=== PATIENT | male | born 1955 | race Caucasian/White ===

== ENCOUNTER → 2019-11-29 | Outpatient (CLI) | payer OTHER, MEDICARE | LOC: LABNPT 16:01 | PROVIDERS: ATTEND Nurse Practitioner Family | DX: Z20.828 Contact with and (suspected) exposure to other viral communicable diseases (principal) | CPT/HCPCS: 87635 ==

== ENCOUNTER 2020-05-05 12:22 | Inpatient (IN) | payer MEDICARE, MEDICAID ==
[~2020-05-05] VITALS: Ht 177 cm; Wt 72.5 kg
--- NOTE | 2020-05-05 12:48 | ED General ---
General Chief Complaint: Fever-Adult/Adol Stated Complaint: FEVER, Source of Information: Prison Records Exam Limitations: No Limitations History of Present Illness Date Seen by Provider: May 05, 2020 Time Seen by Provider: 12:46 Initial Comments To ER from [facility] with reports of a fever intermittently up to 103. They had laboratory studies done today which showed leukocytosis and allegedly a 23,000 white count. They were unable to obtain a urine catheterization. He had Covid in January and was tested yesterday again and was negative. He is demented and unable to contribute to HPI. Timing/Duration: 1-2 Days Severity: Moderate Associated Systoms: Fever/Chills Allergies and Home Medications Allergies Coded Allergies: No Known Drug Allergies (Unverified , 05/05/20) Patient Home Medication List Home Medication List Reviewed: Yes Review of Systems Review of Systems Constitutional: see HPI, fever, other (Unable to obtain due to dementia) Physical Exam Vital Signs Vital Signs - First Documented 05/05/20 12:25 Pulse 93 Resp 20 B/P (MAP) 130/74 (92) Pulse Ox 95 Capillary Refill : Height, Weight, BMI Height: '" Weight: lbs. oz. kg; BMI Method: General Appearance: No Apparent Distress, WD/WN, Thin, Other (Very demented. Afebrile.) HEENT: Other (nasal secretions dried around nose) Neck: Full Range of Motion Respiratory: No Accessory Muscle Use, No Respiratory Distress, Rales Cardiovascular: Regular Rate, Rhythm, Normal Peripheral Pulses Gastrointestinal: Normal Bowel Sounds, Non Tender, Soft Extremity: Normal Capillary Refill, Normal Inspection Neurologic/Psychiatric: Alert, Oriented x3 Skin: Normal Color, Warm/Dry Focused Exam Lactate Level 05/05/20 12:34: Lactic Acid Level 3.12*H Lactic Acid Level Laboratory Tests Test 05/05/20 12:34 Lactic Acid Level 3.12 MMOL/L (0.50-2.00) *H Progress/Results/Core Measures Suspected Sepsis SIRS Temperature: Pulse: Respiratory Rate: Laboratory Tests 05/05/20 12:34: White Blood Count 27.8H Blood Pressure / Mean: 05/05/20 12:34: Lactic Acid Level 3.12*H Laboratory Tests 05/05/20 12:34: Creatinine 1.09, Platelet Count 260, Total Bilirubin 1.6H Results/Orders Lab Results Laboratory Tests Test 05/05/20 12:34 05/05/20 12:42 Range/Units White Blood Count 27.8 H 4.3-11.0 10^3/uL Red Blood Count 4.51 4.30-5.52 10^6/uL Hemoglobin 13.4 13.3-17.7 g/dL Hematocrit 42 40-54 % Mean Corpuscular Volume 93 80-99 fL Mean Corpuscular Hemoglobin 30 25-34 pg Mean Corpuscular Hemoglobin Concent 32 32-36 g/dL Red Cell Distribution Width 13.0 10.0-14.5 % Platelet Count 260 130-400 10^3/uL Mean Platelet Volume 10.7 9.0-12.2 fL Immature Granulocyte % (Auto) 1 % Neutrophils (%) (Auto) 77 H 42-75 % Lymphocytes (%) (Auto) 8 L 12-44 % Monocytes (%) (Auto) 14 H 0-12 % Eosinophils (%) (Auto) 0 0-10 % Basophils (%) (Auto) 0 0-10 % Neutrophils # (Auto) 21.5 H 1.8-7.8 10^3/uL Lymphocytes # (Auto) 2.2 1.0-4.0 10^3/uL Monocytes # (Auto) 3.8 H 0.0-1.0 10^3/uL Eosinophils # (Auto) 0.1 0.0-0.3 10^3/uL Basophils # (Auto) 0.1 0.0-0.1 10^3/uL Immature Granulocyte # (Auto) 0.3 H 0.0-0.1 10^3/uL Sodium Level 138 135-145 MMOL/L Potassium Level 4.1 3.6-5.0 MMOL/L Chloride Level 103 98-107 MMOL/L Carbon Dioxide Level 24 21-32 MMOL/L Anion Gap 11 5-14 MMOL/L Blood Urea Nitrogen 19 H 7-18 MG/DL Creatinine 1.09 0.60-1.30 MG/DL Estimat Glomerular Filtration Rate > 60 BUN/Creatinine Ratio 17 Glucose Level 105 70-105 MG/DL Lactic Acid Level 3.12 *H 0.50-2.00 MMOL/L Calcium Level 9.3 8.5-10.1 MG/DL Corrected Calcium 9.4 8.5-10.1 MG/DL Total Bilirubin 1.6 H 0.1-1.0 MG/DL Aspartate Amino Transf (AST/SGOT) 35 H 5-34 U/L Alanine Aminotransferase (ALT/SGPT) 20 0-55 U/L Alkaline Phosphatase 65 40-136 U/L Total Protein 7.3 6.4-8.2 GM/DL Albumin 3.9 3.2-4.5 GM/DL Urine Color YELLOW Urine Clarity CLEAR Urine pH 6.0 5-9 Urine Specific [place] 1.015 L 1.016-1.022 Urine Protein NEGATIVE NEGATIVE Urine Glucose (UA) NEGATIVE NEGATIVE Urine Ketones NEGATIVE NEGATIVE Urine Nitrite NEGATIVE NEGATIVE Urine Bilirubin NEGATIVE NEGATIVE Urine Urobilinogen 0.2 < = 1.0 MG/DL Urine Leukocyte Esterase NEGATIVE NEGATIVE Urine RBC (Auto) NEGATIVE NEGATIVE Urine RBC NONE /HPF Urine WBC NONE /HPF Urine Crystals PRESENT H /LPF Urine Amorphous Sediment RARE JOHN URATES H /LPF Urine Bacteria NEGATIVE /HPF Urine Casts NONE /LPF Urine Mucus NEGATIVE /LPF Urine Culture Indicated CULTURE PENDING Micro Results Microbiology 05/05/20 Influenza Types A,B Antigen (DOMENICO) - Final, Complete My Orders Orders - CHARITY CARRERA APRN Cbc With Automated Diff (05/05/20 12:26) Comprehensive Metabolic Panel (05/05/20 12:26) Blood Culture (05/05/20 12:26) Sputum Culture (05/05/20 12:26) Urinalysis (05/05/20 12:26) Urine Culture (05/05/20 12:26) Protime With Inr (05/05/20 12:26) Partial Thromboplastin Time (05/05/20 12:26) Chest 1 View, Ap/Pa Only (05/05/20 12:26) Ed Iv/Invasive Line Start (05/05/20 12:26) Vital Signs Adult Sepsis Patie Q15M (05/05/20 12:26) O2 (05/05/20 12:26) Remove Rings In Anticipation O (05/05/20 12:26) Lactic Acid Analyzer (05/05/20 12:26) Manual Differential (05/05/20 12:34) Influenza A And B Antigens (05/05/20 13:04) Piperacillin Sodium/Tazobactam (Zosyn Vi (05/05/20 13:15) Ns Iv 1000 Ml (Sodium Chloride 0.9%) (05/05/20 13:45) Vital Signs/I&O 05/05/20 12:25 Pulse 93 Resp 20 B/P (MAP) 130/74 (92) Pulse Ox 95 Capillary Refill : Departure Communication (Admissions) Family Conversation NAME: ABBY ANTONIO [facility] REC#: [id number] PT STATUS: REG ER : 1955 PHYSICIAN: CHARITY CARRERA APRN ADMIT DATE: 05/05/20/ER Draft Date of Exam:05/05/20 CHEST 1 VIEW, AP/PA ONLY INDICATION: Fever and cough and elevated white blood cell count. TIME OF EXAM: 01:22 p.m. COMPARISON: Correlation is made with prior chest from 04/11/2018. FINDINGS: There appears to be an area of consolidation in the left base, suggestive of pneumonia. Remaining lung nash are clear. There is no effusion or pneumothorax. IMPRESSION: Left basilar pneumonia. Dictated on workstation # [id number] Dict: 05/05/20 1334 Trans: 05/05/20 1337 [id number] [id number] Interpreted by: MORGAN MORAN MD Electronically signed by: Patient is full CODE STATUS per halfway documentation. Despite this, given his frail status prognosis is very guarded Impression Primary Impression: Pneumonia Additional Impression: Sepsis Disposition: 09 ADMITTED INPATIENT Condition: Stable Admissions Decision to Admit Reason: Admit from ER (General) Decision to Admit/Date: May 05, 2020 Time/Decision to Admit Time: 13:40 Departure-Patient Inst. Referrals: DYLAN HAJI DO (PCP/Family) Primary Care Physician CHARITY CARRERA APRN May 05, 2020 12:48
[2020-05-05 12:50] LABS: BASOPHILS # (AUTO) 0.1 10^3/uL (0.0-0.1); BASOPHILS % (AUTO) 0 % (0-10); EOSINOPHILS # (AUTO) 0.1 10^3/uL (0.0-0.3); EOSINOPHILS % (AUTO) 0 % (0-10); HEMATOCRIT 42 % (40-54); HEMOGLOBIN 13.4 g/dL (13.3-17.7); LYMPHOCYTES # (AUTO) 2.2 10^3/uL (1.0-4.0); LYMPHOCYTES % (AUTO) 8 % (12-44); MEAN CORPUSCULAR HEMOGLOBIN 30 pg (25-34); MEAN CORPUSCULAR HGB CONC 32 g/dL (32-36); MEAN CORPUSCULAR VOLUME 93 fL (80-99); MEAN PLATELET VOLUME 10.7 fL (9.0-12.2); MONOCYTES # (AUTO) 3.8 10^3/uL (0.0-1.0); MONOCYTES % (AUTO) 14 % (0-12); NEUTROPHILS # (AUTO) 21.5 10^3/uL (1.8-7.8); NEUTROPHILS % (AUTO) 77 % (42-75); PLATELET COUNT 260 10^3/uL (130-400); WHITE BLOOD COUNT 27.8 10^3/uL (4.3-11.0)
[2020-05-05 12:52] LABS: BILIRUBIN,URINE NEGATIVE (NEGATIVE); CLARITY,URINE CLEAR; COLOR,URINE YELLOW; GLUCOSE, URINE (UA) NEGATIVE (NEGATIVE); KETONES,URINE NEGATIVE (NEGATIVE); LEUKOCYTE ESTERASE ,URINE NEGATIVE (NEGATIVE); NITRITE,URINE NEGATIVE (NEGATIVE); PROTEIN,URINE NEGATIVE (NEGATIVE)
[2020-05-05 13:09] LABS: ALANINE AMINOTRANSFERASE 20 U/L (0-55); ALBUMIN 3.9 GM/DL (3.2-4.5); ALKALINE PHOSPHATASE 65 U/L (40-136); BILIRUBIN,TOTAL 1.6 MG/DL (0.1-1.0); BUN/CREATININE RATIO 17; CALCIUM 9.3 MG/DL (8.5-10.1); CARBON DIOXIDE 24 MMOL/L (21-32); CHLORIDE 103 MMOL/L (98-107); CREATININE SERUM 1.09 MG/DL (0.60-1.30); GFR ESTIMATED > 60; GLUCOSE 105 MG/DL (70-105); POTASSIUM 4.1 MMOL/L (3.6-5.0); SODIUM 138 MMOL/L (135-145); TOTAL PROTEIN 7.3 GM/DL (6.4-8.2)
[2020-05-05] MEDS ORDERED: PIPERACILLIN SODIUM/TAZOBACTAM 4.5 GM in NS (IVPB) 100 ML IV ONE (13:15)
[2020-05-05 13:23] LABS: AMORPHOUS SEDIMENT,UR RARE AMOR URATES /LPF; BACTERIA,URINE NEGATIVE /HPF
[2020-05-05 13:33] LABS: INR 1.1 (0.8-1.4); PROTHROMBIN TIME PATIENT 14.6 SEC (12.2-14.7)
--- NOTE | 2020-05-05 13:38 | Diagnostic Imaging Report ---
INDICATION: Fever and cough and elevated white blood cell count. TIME OF EXAM: 01:22 p.m. COMPARISON: Correlation is made with prior chest from 04/11/2018. FINDINGS: There appears to be an area of consolidation in the left base, suggestive of pneumonia. Remaining lung nash are clear. There is no effusion or pneumothorax. IMPRESSION: Left basilar pneumonia. Dictated by: Dictated on workstation # [id number]
[2020-05-05] MEDS ORDERED: NS IV 1000 ML 1,000 ML IV SCH (13:45)
[2020-05-05 13:51] LABS: BAND NEUTROPHILS 3 %; LYMPHOCYTES % (MANUAL) 13 %; MONOCYTES % (MANUAL) 11 %; NEUTROPHILS % (MANUAL) 73 %; RBC MORPH NORMAL
--- NOTE | 2020-05-05 14:01 | History & Physical-Hospitalist ---
History of Present Illness HPI/Chief Complaint Stacy hung 64yoCM who [facility] ER from the [facility] due to fever. He is unable to provide any history due to dementia. All history is obtained from the records. He had labwork done due to the fever. Labs revealed a leukocytosis and he was referred to the ER for further evaluation. He was found still to have a leukocytosis and was tachycardiac with a lactic acidosis. CXR revealed left sided pneumonia. He was admitted for severe sepsis. Source: patient Date Seen 05/05/20 Time Seen by a Provider: 13:45 Attending Physician Anya Sanchez MD PCP Ramirez Blackmon DO Referring Physician Date of Admission May 05, 2020 at 13:32 Home Medications & Allergies Home Medications Reviewed patient Home Medication Reconciliation performed by pharmacy medication reconciliations plastic eye technician and/or nursing. Patients Allergies have been reviewed. Allergies Allergies Coded Allergies No Known Drug Allergies (Unverified05/05/20) Past Oemsnwf-Nyhmsu-Dfcurq Hx Past Med/Social Hx: Reviewed Nursing Past Med/Soc Hx Patient Social History Employed/Student: unemployed Alcohol Use: Denies Use Recreational Drug Use: No Smoking Status: Unknown if Ever Smoked Recent Foreign Travel: No Contact w/other who traveled: No Recent Infectious Disease Expo: No Past Medical History Neurological: Dementia Family History Reviewed Nursing Family Hx (unable to obtain) Review of Systems ROS-Unable to Obtain: due to dementia Constitutional: see HPI Physical Exam Physical Exam Vital Signs Vital Signs - First Documented 05/05/20 05/05/20 12:25 16:00 Temp 38.8 Pulse 93 Resp 20 B/P (MAP) 130/74 (92) Pulse Ox 95 O2 Delivery Room Air Capillary Refill : Less Than 3 Seconds Height, Weight, BMI Height: '" Weight: lbs. oz. kg; 23.00 BMI Method: General Appearance: No Apparent Distress, WD/WN, Thin HEENT: PERRL/EOMI, Other (dry mucous membranes) Neck: Normal Inspection, Supple Respiratory: Lungs Clear, No Accessory Muscle Use, No Respiratory Distress Cardiovascular: Regular Rate, Rhythm, No Murmur Extremity: Normal Capillary Refill, No Calf Tenderness, No Pedal Edema Neurologic/Psychiatric: Other (arouses to verbal stimuli briefly. Answered "yes" a couple of times, not always appropriately- per RN report this is his baseline) Skin: Normal Color, Warm/Dry Results Results/Procedures Labs Laboratory Tests 05/05/20 12:34 Patient resulted labs reviewed. Imaging: Reviewed Imaging Report Imaging [facility] [place], [place] NAME: ABBY ANTONIO [facility] REC#: [id number] PT STATUS: ADM IN : 1955 PHYSICIAN: CHARITY CARRERA APRN ADMIT DATE: 05/05/20/[facility] Signed Date of Exam:05/05/20 CHEST 1 VIEW, AP/PA ONLY INDICATION: Fever and cough and elevated white blood cell count. TIME OF EXAM: 01:22 p.m. COMPARISON: Correlation is made with prior chest from 04/11/2018. FINDINGS: There appears to be an area of consolidation in the left base, suggestive of pneumonia. Remaining lung nash are clear. There is no effusion or pneumothorax. IMPRESSION: Left basilar pneumonia. Dictated by: Dictated on workstation # [id number] Dict: 05/05/20 1334 Trans: 05/05/20 1602 AS6 [id number] Interpreted by: MORGAN MORAN MD Electronically signed by: MORGAN MORAN MD 05/05/20 1602 Assessment/Plan Admission Diagnosis Severe Sepsis Admission Status: Inpatient Order (span 2 midnights) Reason for Inpatient Admission: see below Assessment and Plan Severe Sepsis Let basilar pneumonia Tachycardia with leukocytosis, lactic acid elevated PNA on cxr Continue on IV abx Await cultures No currently requiring oxygen Advanced early onset dementia Resides in [facility] Per report at baseline Resume home meds ANYA SANCHEZ MD May 05, 2020 14:01
[2020-05-05] MEDS ORDERED: VANCOMYCIN INJECTION 0.1 MG in NS (IVPB) 250 ML IV SCH (15:15)
[2020-05-05] MEDS ORDERED: ACETAMINOPHEN 325 MG SUPP (TYLENOL) PR PRN (15:30)
[2020-05-05] MEDS ORDERED: ACETAMINOPHEN 325 MG TABLET PO PRN ×2 (15:30→19:00)
[2020-05-05] MEDS ORDERED: ONDANSETRON 4 MG/2 ML (SDV) Z0FRAN IVP PRN (15:30)
[2020-05-05] MEDS: LACTATED RINGERS 1,000 ML IV SCH (15:48)
[2020-05-05 16:00] VITALS: BP 162/90
[2020-05-05] MEDS ORDERED: VANCOMYCIN 1500 MG/NS 500 ML IVPB IV NR ×2 (16:00)
[2020-05-05] MEDS ORDERED: LORA10CA PO (16:13)
[2020-05-05] MEDS ORDERED: MELA3CAP2 PO (16:13)
[2020-05-05] MEDS ORDERED: RISP0.5T65 PO (16:13)
[2020-05-05] MEDS ORDERED: SERT-413 PO (16:13)
[2020-05-05] MEDS ORDERED: MIRT15TA6 PO (16:13)
[2020-05-05] MEDS ORDERED: BUSP5TAB59 PO (16:13)
[2020-05-05] MEDS ORDERED: ANTACID SUSP 30 ML UDC (MYLANTA) PO PRN (19:00)
[2020-05-05] MEDS ORDERED: ONDANSETRON 4 MG/2 ML (SDV) Z0FRAN IV PRN (19:00)
[2020-05-05] MEDS ORDERED: BENZONATATE 100 MG (TESSALON) CAPSULE PO PRN (19:00)
[2020-05-05] MEDS ORDERED: MILK OF MAGNESIA 400 MG/5 ML 30 ML UDC PO PRN (19:00)
[2020-05-05 20:22] VITALS: BP 103/64
[2020-05-05] MEDS: PIPERACILLIN/TAZO 4.5 GM/NS 100 ML IV SCH ×2 (20:47)
[2020-05-05] MEDS: MELATONIN 3 MG TABLET PO SCH (20:47)
[2020-05-05] MEDS: MIRTAZAPINE 15 MG (REMERON) TAB PO SCH (20:48)
[2020-05-05] MEDS: risperiDONE 0.25 MG (RisperDAL) TAB PO SCH (20:48)
[2020-05-05] MEDS: busPIRone 5 MG (BUSPAR) TAB PO SCH (20:49)
[2020-05-05 21:21] VITALS: BP 106/60
[2020-05-06] VITALS (7 sets, daily range): BP systolic 108–141; BP diastolic 55–90
[2020-05-06] MEDS: LACTATED RINGERS 1,000 ML IV SCH ×2 (01:32→06:53)
[2020-05-06] MEDS: VANCOMYCIN 1 GM/NS 250 ML IVPB IV SCH ×4 (03:23→16:19)
[2020-05-06] MEDS: PIPERACILLIN/TAZO 4.5 GM/NS 100 ML IV SCH ×6 (04:49→21:13)
[2020-05-06 06:28] LABS: BASOPHILS % (AUTO) 0 % (0-10); EOSINOPHILS # (AUTO) 0.3 10^3/uL (0.0-0.3); EOSINOPHILS % (AUTO) 2 % (0-10); HEMATOCRIT 36 % (40-54); HEMOGLOBIN 11.4 g/dL (13.3-17.7); LYMPHOCYTES # (AUTO) 1.6 10^3/uL (1.0-4.0); LYMPHOCYTES % (AUTO) 9 % (12-44); MEAN CORPUSCULAR HEMOGLOBIN 30 pg (25-34); MEAN CORPUSCULAR HGB CONC 32 g/dL (32-36); MEAN CORPUSCULAR VOLUME 92 fL (80-99); MEAN PLATELET VOLUME 11.5 fL (9.0-12.2); MONOCYTES # (AUTO) 2.2 10^3/uL (0.0-1.0); MONOCYTES % (AUTO) 12 % (0-12); NEUTROPHILS # (AUTO) 13.7 10^3/uL (1.8-7.8); NEUTROPHILS % (AUTO) 77 % (42-75); PLATELET COUNT 213 10^3/uL (130-400); WHITE BLOOD COUNT 17.9 10^3/uL (4.3-11.0)
[2020-05-06 06:54] LABS: ALBUMIN 3.3 GM/DL (3.2-4.5)
[2020-05-06 06:55] LABS: CHLORIDE 109 MMOL/L (98-107); POTASSIUM 3.6 MMOL/L (3.6-5.0); SODIUM 140 MMOL/L (135-145)
[2020-05-06 06:56] LABS: CALCIUM 8.4 MG/DL (8.5-10.1)
[2020-05-06 06:57] LABS: GLUCOSE 103 MG/DL (70-105)
[2020-05-06 06:58] LABS: CARBON DIOXIDE 23 MMOL/L (21-32)
[2020-05-06 06:59] LABS: BILIRUBIN,TOTAL 1.2 MG/DL (0.1-1.0)
[2020-05-06 07:00] LABS: ALKALINE PHOSPHATASE 52 U/L (40-136)
[2020-05-06 07:01] LABS: CREATININE SERUM 0.98 MG/DL (0.60-1.30); GFR ESTIMATED > 60
[2020-05-06 07:02] LABS: BUN/CREATININE RATIO 16
[2020-05-06 07:04] LABS: ALANINE AMINOTRANSFERASE 16 U/L (0-55)
[2020-05-06] MEDS: SERTRALINE 50 MG (ZOLOFT) TABLET PO SCH (09:00)
[2020-05-06] MEDS: risperiDONE 0.25 MG (RisperDAL) TAB PO SCH ×3 (09:00→21:13)
[2020-05-06] MEDS: ENOXAPARIN 40 MG/0.4 ML (LOVENOX) SYR SC SCH (09:00)
[2020-05-06] MEDS: busPIRone 5 MG (BUSPAR) TAB PO SCH ×3 (09:00→21:13)
[2020-05-06] MEDS: LORATADINE (CLARITIN) 10 MG TAB PO SCH (09:00)
--- NOTE | 2020-05-06 12:27 | Progress Note - Hospitalist ---
Subjective HPI/CC On Admission Date Seen by Provider: May 06, 2020 Time Seen by Provider: 12:21 P shannon hung 64yoCM who presented to the ER from the intermediate due to fever. He is unable to provide any history due to dementia. All history is obtained from the records. He had labwork done due to the fever. Labs revealed a leukocytosis and he was referred to the ER for further evaluation. He was found still to have a leukocytosis and was tachycardiac with a lactic acidosis. CXR revealed left sided pneumonia. He was admitted for severe sepsis. Subjective/Events-last exam Pt awake and alert in bed. eating lunch. Says "yup" when asked if he is feeling better but otherwise doesn't really answer questions. RN reports he was attempting to eat his telemetry lead earlier today when she entered the room. Focused Exam Lactate Level 05/05/20 12:34: Lactic Acid Level 3.12*H 05/05/20 15:13: Lactic Acid Level 2.14*H 05/05/20 17:13: Lactic Acid Level 0.91 Objective Exam Vital Signs Vital Signs Date Time Temp Pulse Resp B/P (MAP) Pulse Ox O2 Delivery O2 Flow Rate FiO2 05/06/20 09:00 Room Air 05/06/20 08:00 36.6 86 20 140/77 (98) 93 Capillary Refill : Less Than 3 Seconds General Appearance: No Apparent Distress, WD/WN Respiratory: Lungs Clear, No Respiratory Distress Cardiovascular: Regular Rate, Rhythm, No Murmur Neurologic/Psychiatric: Alert, Aphasia, Disoriented Results/Procedures Lab Laboratory Tests 05/05/20 12:34 05/06/20 05:28 05/06/20 05:38 Patient resulted labs reviewed. Imaging: Reviewed Imaging Report Assessment/Plan Assessment and Plan Assess & Plan/Chief Complaint Severe Sepsis Left basilar pneumonia Doing better today Continue on IV abx Await cultures, blood pending and urine NGTD No current oxygen requirement Advanced early onset dementia Resides in intermediate Per report at baseline Continue home meds DVT ppx: ANYA Recinos MD May 06, 2020 12:27
[2020-05-06] MEDS ORDERED: BISA10SU8 RC (13:11)
[2020-05-06] MEDS ORDERED: ACET325C7 PO (13:11)
[2020-05-06] MEDS ORDERED: ONDA-105 PO (13:11)
[2020-05-06] MEDS ORDERED: CEFD300C3 PO (13:11)
[2020-05-06] MEDS ORDERED: MAGN400O7 PO (13:11)
[2020-05-06] MEDS ORDERED: LOPE2CAP14 PO (13:11)
[2020-05-06] MEDS: MELATONIN 3 MG TABLET PO SCH (21:13)
[2020-05-06] MEDS: MIRTAZAPINE 15 MG (REMERON) TAB PO SCH (21:13)
[2020-05-07 03:57] VITALS: BP 124/72
[2020-05-07] MEDS: VANCOMYCIN 1 GM/NS 250 ML IVPB IV SCH ×2 (04:37)
[2020-05-07] MEDS: LACTATED RINGERS 1,000 ML IV SCH (04:38)
[2020-05-07 05:34] LABS: BASOPHILS % (AUTO) 0 % (0-10); EOSINOPHILS # (AUTO) 0.7 10^3/uL (0.0-0.3); EOSINOPHILS % (AUTO) 7 % (0-10); HEMATOCRIT 37 % (40-54); HEMOGLOBIN 11.8 g/dL (13.3-17.7); LYMPHOCYTES # (AUTO) 1.8 10^3/uL (1.0-4.0); LYMPHOCYTES % (AUTO) 19 % (12-44); MEAN CORPUSCULAR HEMOGLOBIN 30 pg (25-34); MEAN CORPUSCULAR HGB CONC 32 g/dL (32-36); MEAN CORPUSCULAR VOLUME 92 fL (80-99); MONOCYTES # (AUTO) 1.5 10^3/uL (0.0-1.0); MONOCYTES % (AUTO) 16 % (0-12); NEUTROPHILS # (AUTO) 5.1 10^3/uL (1.8-7.8); NEUTROPHILS % (AUTO) 56 % (42-75); PLATELET COUNT 224 10^3/uL (130-400); WHITE BLOOD COUNT 9.2 10^3/uL (4.3-11.0)
[2020-05-07] MEDS: PIPERACILLIN/TAZO 4.5 GM/NS 100 ML IV SCH ×4 (05:39→11:35)
[2020-05-07 05:49] LABS: ALBUMIN 3.4 GM/DL (3.2-4.5)
[2020-05-07 05:50] LABS: CHLORIDE 108 MMOL/L (98-107); POTASSIUM 3.6 MMOL/L (3.6-5.0); SODIUM 139 MMOL/L (135-145)
[2020-05-07 05:51] LABS: CALCIUM 8.8 MG/DL (8.5-10.1)
[2020-05-07 05:52] LABS: GLUCOSE 90 MG/DL (70-105); TOTAL PROTEIN 6.3 GM/DL (6.4-8.2)
[2020-05-07 05:53] LABS: CARBON DIOXIDE 22 MMOL/L (21-32)
[2020-05-07 05:54] LABS: BILIRUBIN,TOTAL 0.9 MG/DL (0.1-1.0)
[2020-05-07 05:55] LABS: ALKALINE PHOSPHATASE 50 U/L (40-136)
[2020-05-07 05:56] LABS: CREATININE SERUM 1.07 MG/DL (0.60-1.30); GFR ESTIMATED > 60
[2020-05-07 05:57] LABS: BUN/CREATININE RATIO 11
[2020-05-07 05:59] LABS: ALANINE AMINOTRANSFERASE 17 U/L (0-55)
[2020-05-07 08:00] VITALS: BP 139/66
[2020-05-07] MEDS: SERTRALINE 50 MG (ZOLOFT) TABLET PO SCH (08:40)
[2020-05-07] MEDS: LORATADINE (CLARITIN) 10 MG TAB PO SCH (08:40)
[2020-05-07] MEDS: risperiDONE 0.25 MG (RisperDAL) TAB PO SCH ×2 (08:40→13:54)
[2020-05-07] MEDS: busPIRone 5 MG (BUSPAR) TAB PO SCH ×2 (08:40→13:54)
[2020-05-07] MEDS: ENOXAPARIN 40 MG/0.4 ML (LOVENOX) SYR SC SCH (08:41)
[2020-05-07] MEDS ORDERED: L.AC1CAP6 PO (09:36)
--- NOTE | 2020-05-07 09:37 | Discharge Inst-Simple/Standard ---
Discharge Inst-Standard Discharge Medications New, Converted or Re-Newed RX: Transmitted to Pharmacy Patient Instructions/Follow Up Plan of Care/Instructions/FU: Please continue to take your medications as written. Please follow up with your primary care doctor to follow up this hospital stay. Activity as Tolerated: Yes Discharge Diet: No Restrictions Return to The Hospital For: Chest pain, shortness of breath, fever, confusion, if you feel you are getting worse. ANYA RODRIGUEZ MD May 07, 2020 09:37
--- NOTE | 2020-05-07 09:45 | Discharge Summary ---
Diagnosis/Chief Complaint Date of Admission May 05, 2020 at 13:32 Date of Discharge Discharge Date: May 07, 2020 Admission Diagnosis Severe Sepsis Primary Care Ramirez Blackmon DO Discharge Summary Discharge Physical Exam Allergies: Coded Allergies: No Known Drug Allergies (Unverified , 05/05/20) Vitals & I&Os Vital Signs Date Time Temp Pulse Resp B/P (MAP) Pulse Ox O2 Delivery O2 Flow Rate FiO2 05/07/20 12:49 36.6 61 20 147/74 (98) 95 Room Air General Appearance: No Apparent Distress, Chronically ill, Thin Respiratory: Lungs Clear, No Respiratory Distress Cardiovascular: Regular Rate, Rhythm, No Murmur Neurologic/Psychiatric: Alert, Aphasia, Disoriented Hospital Course Pt was admitted to the hospital due to severe sepsis from pneumonia. He was admitted for IV abx and did well. He suffers from advanced dementia and his me ntal status stayed around his baseline the entire admission. He was discharged back to his nursing facility for residential care to complete oral antibiotics as had been prescribed the day of admission (Cefdinir). He is to follow up with Dr Blackmon in the next week. Labs (last 24 hrs) Laboratory Tests 05/07/20 05:14: White Blood Count 9.2, Red Blood Count 3.96L, Hemoglobin 11.8L, Hematocrit 37L, Mean Corpuscular Volume 92, Mean Corpuscular Hemoglobin 30, Mean Corpuscular Hemoglobin Concent 32, Red Cell Distribution Width 13.1, Platelet Count 224, M lopez Platelet Volume 11.0, Immature Granulocyte % (Auto) 1, Neutrophils (%) (Auto) 56, Lymphocytes (%) (Auto) 19, Monocytes (%) (Auto) 16H, Eosinophils (%) (Auto) 7, Basophils (%) (Auto) 0, Neutrophils # (Auto) 5.1, Lymphocytes # (Auto) 1.8, Monocytes # (Auto) 1.5H, Eosinophils # (Auto) 0.7H, Basophils # (Auto) 0.0, Immature Granulocyte # (Auto) 0.1, Sodium Level 139, Potassium Level 3.6, Chloride Level 108H, Carbon Dioxide Level 22, Anion Gap 9, Blood Urea Nitrogen 12, Creatinine 1.07, Estimat Glomerular Filtration Rate > 60, BUN/Creatinine Ratio 11, Glucose Level 90, Calcium Level 8.8, Corrected Calcium 9.3, Total Bilirubin 0.9, Aspartate Amino Transf (AST/SGOT) 25, Alanine Aminotransferase (ALT/SGPT) 17, Alkaline Phosphatase 50, Total Protein 6.3L, Albumin 3.4 Microbiology 05/05/20 Blood Culture - Preliminary, Resulted No growth 05/05/20 Urine Culture - Final, Complete NO GROWTH 05/05/20 Influenza Types A,B Antigen (DOMENICO) - Final, Complete Patient resulted labs reviewed. Pending Labs Imaging: Reviewed Imaging Report Discussion & Recommendations Discharge Planning: >30 minutes discharge planning Discharge Home Medications: Active Scripts Active Probiotic (L.acidoph & Paracasei,B.lactis) 1 Each Capsule 1 Each PO TID Reported Ondansetron HCl 4 Mg Tablet 4 Mg PO Q8H PRN Tylenol (Acetaminophen) 325 Mg Capsule 650 Mg PO Q4H PRN Milk of Magnesia (Magnesium Hydroxide) 400 Mg/5 Ml Oral.susp 30 Ml PO DAILY PRN Anti-Diarrheal (Loperamide HCl) 2 Mg Capsule 2-4 Mg PO UD PRN Cefdinir 300 Mg Capsule 300 Mg PO BID FILLED 05-05-2020 #12/ 6 DAY SUPPLY Bisacodyl 10 Mg Supp.rect 10 Mg RC DAILY PRN USE IF MILK OF MAG NOT EFFECTIVE Sertraline HCl 50 Mg Tablet 50 Mg PO DAILY Risperidone 0.5 Mg Tablet 0.5 Mg PO TID Mirtazapine 15 Mg Tablet 15 Mg PO HS Melatonin 3 Mg Capsule 3 Mg PO HS Claritin (Loratadine) 10 Mg Capsule 10 Mg PO DAILY Buspirone HCl 5 Mg Tablet 10 Mg PO TID TAKES 2 (5MG) TABS Instructions to patient/family Please see electronic discharge instructions given to patient. ANYA RODRIGUEZ MD May 07, 2020 09:45
[2020-05-07 12:49] VITALS: BP 147/74
== END 2020-05-07 13:50 | DRG 871 ==
LOC: EDUNIT# 12:22 → ER 12:24 → CSD 13:32 → 4TH 21:05
PROVIDERS: ADMIT Family Medicine; ATTEND Family Medicine
DX: A41.9 Sepsis, unspecified organism (principal); J18.9 Pneumonia, unspecified organism; E87.2 Acidosis; R65.20 Severe sepsis without septic shock; F03.90 Unspecified dementia, unspecified severity, without behavioral disturbance, psychotic disturbance, mood disturbance, and anxiety
CPT/HCPCS: 36415; 71045; 80053; 81000; 83605; 85007; 85025; 85027; 85610; 85730; 87040; 87088; 87804; 96365

== ENCOUNTER → 2021-10-08 | Emergency (ER) | payer MEDICARE, MEDICAID ==
[~2021-10-08] VITALS: Ht 180 cm; Wt 72.5 kg
[~2021-10-08] MED LIST: ACET325C7 PO; BISA10SU8 RC; BUSP5TAB59 PO; CEFD300C3 PO; ENOXAPARIN 100 MG/1 ML (LOVENOX) SYR ONE; ENOXAPARIN 100 MG/1 ML (LOVENOX) SYR SC ONE; L.AC1CAP6 PO; LOPE2CAP14 PO; LORA10CA PO; MAGN400O7 PO; MELA3CAP2 PO; MIRT-68 PO; ONDA-105 PO; RISP0.5T65 PO; SERT-413 PO
--- NOTE | 2021-10-08 16:29 | ED General ---
General Stated Complaint: LEG SWELLING Source of Information: Patient, Family History of Present Illness Date Seen by Provider: Oct 08, 2021 Time Seen by Provider: 16:28 Allergies and Home Medications Allergies Coded Allergies: No Known Drug Allergies (Unverified , 05/05/20) Patient Home Medication List Acetaminophen (Tylenol) 325 Mg Capsule, 650 MG PO Q4H PRN for PAIN-MILD (1-4), (Reported) Entered as Reported by: SEVEN MARTINEZ on 05/06/20 1311 Bisacodyl (Bisacodyl) 10 Mg Supp.rect, 10 MG RC DAILY PRN for CONSTIPATION-4TH LINE, (Reported) Entered as Reported by: SEVEN MARTINEZ on 05/06/20 131 Buspirone HCl (Buspirone HCl) 5 Mg Tablet, 10 MG PO TID, (Reported) Entered as Reported by: MARIEL THOMAS on 05/05/20 161 Cefdinir (Cefdinir) 300 Mg Capsule, 300 MG PO BID, (Reported) Entered as Reported by: SEVEN MARTINEZ on 05/06/20 131 L.acidoph & Paracasei,B.lactis (Probiotic) 1 Each Capsule, 1 EACH PO TID Prescribed by: ANYA RODRIGUEZ on 05/07/20 0936 Loperamide HCl (Anti-Diarrheal) 2 Mg Capsule, 2-4 MG PO UD PRN for DIARRHEA, (Reported) Entered as Reported by: SEVEN MARTINEZ on 05/06/20 131 Loratadine (Claritin) 10 Mg Capsule, 10 MG PO DAILY, (Reported) Entered as Reported by: MARIEL THOMAS on 05/05/201612 Magnesium Hydroxide (Milk of Magnesia) 400 Mg/5 Ml Oral.susp, 30 ML PO DAILY PRN for CONSTIPATION-7TH LINE, (Reported) Entered as Reported by: SEVEN MARTINEZ on 05/06/20 131 Melatonin (Melatonin) 3 Mg Capsule, 3 MG PO HS, (Reported) Entered as Reported by: MARIEL THOMSA on 05/05/201612 Mirtazapine (Mirtazapine) 15 Mg Tablet, 15 MG PO HS, (Reported) Entered as Reported by: MARIEL THOMAS on 05/05/201612 Ondansetron HCl (Ondansetron HCl) 4 Mg Tablet, 4 MG PO Q8H PRN for NAUSEA/VOMITING-1ST LINE, (Reported) Entered as Reported by: SEEVN MARTINEZ on 05/06/20 1311 Risperidone (Risperidone) 0.5 Mg Tablet, 0.5 MG PO TID, (Reported) Entered as Reported by: MARIEL THOMAS on 05/05/20 1613 Sertraline HCl (Sertraline HCl) 50 Mg Tablet, 50 MG PO DAILY, (Reported) Entered as Reported by: MARIEL THOMAS on 05/05/20 1613 Past Jflsxgr-Alzcoj-Vhabww Hx Past Medical History Respiratory: No Cardiac: No Neurological: Yes Dementia Genitourinary: No Gastrointestinal: No Musculoskeletal: No Endocrine: No HEENT: No Cancer: No Psychosocial: Yes (MOOD DISORDER) Integumentary: No Physical Exam Vital Signs Vital Signs - First Documented 10/08/21 16:29 Temp 36.3 Pulse 80 Resp 20 B/P (MAP) 173/86 (115) Pulse Ox 98 O2 Delivery Room Air Capillary Refill : Height, Weight, BMI Height: '" Weight: lbs. oz. kg; 23.14 BMI Method: Progress/Results/Core Measures Suspected Sepsis SIRS Temperature: Pulse: Respiratory Rate: Laboratory Tests 10/08/21 17:10: White Blood Count 7.1 Blood Pressure / Mean: Laboratory Tests 10/08/21 17:10: Creatinine 0.87, Platelet Count 255, Total Bilirubin 0.6 Results/Orders Lab Results Laboratory Tests Test 10/08/21 17:10 Range/Units White Blood Count 7.1 4.3-11.0 10^3/uL Red Blood Count 4.10 L 4.30-5.52 10^6/uL Hemoglobin 12.4 L 13.3-17.7 g/dL Hematocrit 38 L 40-54 % Mean Corpuscular Volume 92 80-99 fL Mean Corpuscular Hemoglobin 30 25-34 pg Mean Corpuscular Hemoglobin Concent 33 32-36 g/dL Red Cell Distribution Width 12.8 10.0-14.5 % Platelet Count 255 130-400 10^3/uL Mean Platelet Volume 10.3 9.0-12.2 fL Immature Granulocyte % (Auto) 1 % Neutrophils (%) (Auto) 48 42-75 % Lymphocytes (%) (Auto) 26 12-44 % Monocytes (%) (Auto) 18 H 0-12 % Eosinophils (%) (Auto) 7 0-10 % Basophils (%) (Auto) 0 0-10 % Neutrophils # (Auto) 3.4 1.8-7.8 10^3/uL Lymphocytes # (Auto) 1.8 1.0-4.0 10^3/uL Monocytes # (Auto) 1.3 H 0.0-1.0 10^3/uL Eosinophils # (Auto) 0.5 H 0.0-0.3 10^3/uL Basophils # (Auto) 0.0 0.0-0.1 10^3/uL Immature Granulocyte # (Auto) 0.0 0.0-0.1 10^3/uL Neutrophils % (Manual) 43 % Lymphocytes % (Manual) 33 % Monocytes % (Manual) 15 % Eosinophils % (Manual) 9 % Basophils % (Manual) 0 % Band Neutrophils 0 % Blood Morphology Comment NORMAL D-Dimer 3.84 H 0.00-0.49 UG/ML Sodium Level 144 135-145 MMOL/L Potassium Level 4.0 3.6-5.0 MMOL/L Chloride Level 108 H 98-107 MMOL/L Carbon Dioxide Level 25 21-32 MMOL/L Anion Gap 11 5-14 MMOL/L Blood Urea Nitrogen 18 7-18 MG/DL Creatinine 0.87 0.60-1.30 MG/DL Estimat Glomerular Filtration Rate 95 BUN/Creatinine Ratio 21 Glucose Level 92 70-105 MG/DL Calcium Level 9.3 8.5-10.1 MG/DL Corrected Calcium 9.4 8.5-10.1 MG/DL Total Bilirubin 0.6 0.1-1.0 MG/DL Aspartate Amino Transf (AST/SGOT) 17 5-34 U/L Alanine Aminotransferase (ALT/SGPT) 17 0-55 U/L Alkaline Phosphatase 65 40-136 U/L Total Protein 7.2 6.4-8.2 GM/DL Albumin 3.9 3.2-4.5 GM/DL My Orders Orders - MICHELE COTTER TOWEL ROLLING MACHINE OPERATOR Cbc With Automated Diff (10/08/21 16:45) Comprehensive Metabolic Panel (10/08/21 16:45) Fibrin Degradation Products (10/08/21 16:45) Tibia/Fibula, Right, 2 Views (10/08/21 17:05) Manual Differential (10/08/21 17:10) Enoxaparin Injection (Lovenox Injection) (10/08/21 18:15) Vital Signs/I&O 10/08/21 16:29 Temp 36.3 Pulse 80 Resp 20 B/P (MAP) 173/86 (115) Pulse Ox 98 O2 Delivery Room Air Capillary Refill : Departure Impression Primary Impression: Suspected DVT (deep vein thrombosis) Disposition: 03 XFER SNF Condition: Stable Departure-Patient Inst. Decision time for Depature: 18:06 Referrals: DYLAN HAJI DO (PCP/Family) Primary Care Physician Patient Instructions: Deep Vein Thrombosis (Blood Clots in the Legs) (DC) Add. Discharge Instructions: Plan: 1. Will need to return to hospital tomorrow for outpatient order for venous ultrasound of left lower extremity. 2. Given Lovenox 100mg subcut in ED. 3. Follow with PCP regarding results of ultrasound. 4. Return to ER for any new, concerning, or worsening symptoms. MICHELE COTTER TOWEL ROLLING MACHINE OPERATOR Oct 08, 2021 16:28
[2021-10-08 17:19] LABS: BASOPHILS % (AUTO) 0 % (0-10); EOSINOPHILS # (AUTO) 0.5 10^3/uL (0.0-0.3); EOSINOPHILS % (AUTO) 7 % (0-10); HEMATOCRIT 38 % (40-54); HEMOGLOBIN 12.4 g/dL (13.3-17.7); LYMPHOCYTES # (AUTO) 1.8 10^3/uL (1.0-4.0); LYMPHOCYTES % (AUTO) 26 % (12-44); MEAN CORPUSCULAR HEMOGLOBIN 30 pg (25-34); MEAN CORPUSCULAR HGB CONC 33 g/dL (32-36); MEAN CORPUSCULAR VOLUME 92 fL (80-99); MEAN PLATELET VOLUME 10.3 fL (9.0-12.2); MONOCYTES # (AUTO) 1.3 10^3/uL (0.0-1.0); MONOCYTES % (AUTO) 18 % (0-12); NEUTROPHILS # (AUTO) 3.4 10^3/uL (1.8-7.8); NEUTROPHILS % (AUTO) 48 % (42-75); PLATELET COUNT 255 10^3/uL (130-400); WHITE BLOOD COUNT 7.1 10^3/uL (4.3-11.0)
[2021-10-08 17:32] LABS: ALBUMIN 3.9 GM/DL (3.2-4.5)
[2021-10-08 17:33] LABS: CALCIUM 9.3 MG/DL (8.5-10.1)
[2021-10-08 17:34] LABS: TOTAL PROTEIN 7.2 GM/DL (6.4-8.2)
[2021-10-08 17:36] LABS: BILIRUBIN,TOTAL 0.6 MG/DL (0.1-1.0)
[2021-10-08 17:38] LABS: CREATININE SERUM 0.87 MG/DL (0.60-1.30)
--- NOTE | 2021-10-08 17:47 | Diagnostic Imaging Report ---
HISTORY: Swelling of the right tibia and fibula. TECHNIQUE: Two views of the right tibia and fibula. COMPARISON: None. FINDINGS: No acute fracture or dislocation is seen in the right tibia and fibula. Alignment appears normal. There is moderate soft tissue swelling throughout the right lower leg. There is no soft tissue gas. There is a sclerotic, cortically based lesion along the lateral aspect of the distal right tibial diametaphysis with no cortical breach or periosteal reaction. IMPRESSION: 1. Moderate soft tissue swelling in the right lower leg with no acute osseous abnormality or soft tissue gas seen. 2. Sclerotic cortically based lesion in the lateral aspect of the distal right tibial diametaphysis. Consider nonemergent follow-up with cross-sectional imaging. Dictated by: Dictated on workstation # [id number]
[2021-10-08 18:05] LABS: BAND NEUTROPHILS 0 %; BASOPHILS % (MANUAL) 0 %; EOSINOPHILS % (MANUAL) 9 %; LYMPHOCYTES % (MANUAL) 33 %; MONOCYTES % (MANUAL) 15 %; NEUTROPHILS % (MANUAL) 43 %; RBC MORPH NORMAL
[2021-10-08 18:18] VITALS: BP 155/78
== END ==
LOC: EDUNIT# 15:54 → ER 15:55
DX: M79.89 Other specified soft tissue disorders (principal)
CPT/HCPCS: 36415; 73590; 80053; 85007; 85027; 85379

== ENCOUNTER → 2021-10-09 | Outpatient (CLI) | payer MEDICARE, MEDICAID ==
[~2021-10-09] MED LIST changes: -ENOXAPARIN 100 MG/1 ML (LOVENOX) SYR ONE; -ENOXAPARIN 100 MG/1 ML (LOVENOX) SYR SC ONE
--- NOTE | 2021-10-09 15:23 | Diagnostic Imaging Report ---
PROCEDURE: US right lower extremity venous. TECHNIQUE: Multiple real-time grayscale images were obtained over the right lower extremity in various projections. Additional spectral analysis and color Doppler duplex images were also obtained. INDICATION: Right leg swelling There appears to be thrombosis of the distal right superficial femoral vein extending through the popliteal vein and calf veins. There is some flow seen in the popliteal vein. . IMPRESSION: Deep vein thrombosis of the right leg. Results were called to provider at time of exam Dictated by: Dictated on workstation # [id number]
== END ==
LOC: RAD 14:37
PROVIDERS: ATTEND Emergency Medicine
DX: I82.401 Acute embolism and thrombosis of unspecified deep veins of right lower extremity (principal); R79.1 Abnormal coagulation profile

== ENCOUNTER 2022-05-25 10:04 | Inpatient (IN) | payer MEDICARE, MEDICAID ==
[2022-05-25] VITALS (18 sets, daily range): BP systolic 121–145; BP diastolic 54–93
[~2022-05-25] VITALS: Ht 177 cm; Wt 72.0 kg
[2022-05-25] MEDS ORDERED: DOXYCYCLINE INJECTION 100 MG in NS (IVPB) 100 ML IV ONE (10:30)
[2022-05-25] MEDS ORDERED: metroNIDAZOLE 500MG/100ML IVPB 100 ML IV ONE (10:30)
[2022-05-25] MEDS ORDERED: cefTRIAXone PRE-MIX 50 ML IV ONE (10:30)
[2022-05-25] MEDS ORDERED: NS IV 1000 ML 1,000 ML IV SCH (10:30)
--- NOTE | 2022-05-25 10:35 | ED General ---
General Chief Complaint: Cough/Cold/Flu Symptoms Stated Complaint: SOB Nursing Triage Note: FOUND THIS MORNING IN BED WITH OXYGEN SATS IN THE 80'S AND A COUGH. PT HAS HAD A COUGH SINCE TUESDAY. [facility] QUESTION ASPIRATION. Source of Information: Patient, EMS, [facility] Records, RN/MD Exam Limitations: No Limitations History of Present Illness Date Seen by Provider: May 25, 2022 Time Seen by Provider: 10:06 Initial Comments 66-year-old male with past medical history most notable for dementia as well as DVT on Eliquis coming in via EMS from the [facility] due to him having low oxygen this morning when he was found, worsening cough, and now slightly more confused. They did not believe he had a fever, he had not been complaining of pain anywhere, and otherwise denying any other acute complaints. EMS reports his oxygen was in the 80s, placed on 4 L with improvement to the 90s. Allergies and Home Medications Allergies Coded Allergies: No Known Drug Allergies (Unverified , 05/05/20) Patient Home Medication List Home Medication List Reviewed: Yes Acetaminophen (Tylenol) 325 Mg Capsule, 650 MG PO Q4H PRN for PAIN-MILD (1-4), (Reported) Entered as Reported by: SEVEN MARTINEZ on 05/06/20 1311 Bisacodyl (Bisacodyl) 10 Mg Supp.rect, 10 MG RC DAILY PRN for CONSTIPATION-4TH LINE, (Reported) Entered as Reported by: SEVEN MARTINEZ on 05/06/20 1311 Buspirone HCl (Buspirone HCl) 5 Mg Tablet, 10 MG PO TID, (Reported) Entered as Reported by: MARIEL THOMAS on 05/05/20 1613 Cefdinir (Cefdinir) 300 Mg Capsule, 300 MG PO BID, (Reported) Entered as Reported by: SEVEN MARTINEZ on 05/06/20 1311 L.acidoph & Paracasei,B.lactis (Probiotic) 1 Each Capsule, 1 EACH PO TID Prescribed by: ANYA RODRIGUEZ on 05/07/20 0936 Loperamide HCl (Anti-Diarrheal) 2 Mg Capsule, 2-4 MG PO UD PRN for DIARRHEA, (R eported) Entered as Reported by: SEVEN MARTINEZ on 05/06/20 1311 Loratadine (Claritin) 10 Mg Capsule, 10 MG PO DAILY, (Reported) Entered as Reported by: MARIEL THOMAS on 05/05/20 161 Magnesium Hydroxide (Milk of Magnesia) 400 Mg/5 Ml Oral.susp, 30 ML PO DAILY PRN for CONSTIPATION-7TH LINE, (Reported) Entered as Reported by: SEVEN MARTINEZ on 05/06/20 131 Melatonin (Melatonin) 3 Mg Capsule, 3 MG PO HS, (Reported) Entered as Reported by: MARIEL THOMAS on 05/05/20 161 Mirtazapine (Mirtazapine) 15 Mg Tablet, 15 MG PO HS, (Reported) Entered as Reported by: MARIEL THOMAS on 05/05/20 161 Ondansetron HCl (Ondansetron HCl) 4 Mg Tablet, 4 MG PO Q8H PRN for NAUSEA/VOMITING-1ST LINE, (Reported) Entered as Reported by: SEVEN MARTINEZ on 05/06/20 131 Risperidone (Risperidone) 0.5 Mg Tablet, 0.5 MG PO TID, (Reported) Entered as Reported by: MARIEL THOMAS on 05/05/201612 Sertraline HCl (Sertraline HCl) 50 Mg Tablet, 50 MG PO DAILY, (Reported) Entered as Reported by: MARIEL THOMAS on 05/05/201612 Review of Systems Review of Systems Constitutional: No fever EENTM: no symptoms reported Respiratory: cough, short of breath Cardiovascular: no symptoms reported Gastrointestinal: no symptoms reported Genitourinary: no symptoms reported Musculoskeletal: no symptoms reported Past Jrzbvwi-Mxojnm-Gsgqnb Hx Patient Social History Substance use?: No Past Medical History Surgery/Hospitalization HX: DEMENTIA WITH BEHAVIORAL DISORDER, ANXIETY DISORDER, HX OF PNEUMONIA 05/07/20 Respiratory: No Cardiac: No Neurological: Yes Dementia Genitourinary: No Gastrointestinal: No Musculoskeletal: No Endocrine: No HEENT: No Cancer: No Psychosocial: Yes (MOOD DISORDER) Integumentary: No Physical Exam Vital Signs Vital Signs - First Documented 05/25/22 10:05 Temp 38.8 Pulse 89 Resp 16 B/P (MAP) 155/106 (122) Pulse Ox 100 O2 Delivery Nasal Cannula O2 Flow Rate 4.00 Capillary Refill : Less Than 3 Seconds Height, Weight, BMI Height: '" Weight: lbs. oz. kg; 22.00 BMI Method: General Appearance: Thin, Other (Chronically ill-appearing) Eyes: Bilateral Eye Normal Inspection, Bilateral Eye PERRL, Bilateral Eye EOMI HEENT: PERRL/EOMI, TMs Normal, Normal ENT Inspection, Pharynx Normal Neck: Full Range of Motion, Normal Inspection, Non Tender, Supple Respiratory: Chest Non Tender, No Accessory Muscle Use, No Respiratory Distress, Crackles, Rhonci Cardiovascular: Regular Rate, Rhythm, No Edema, Normal Peripheral Pulses Gastrointestinal: Normal Bowel Sounds, Non Tender, Soft; No Distended, No Guarding Back: Normal Inspection, No CVA Tenderness Extremity: Normal Capillary Refill, No Calf Tenderness Neurologic/Psychiatric: Alert, Other (Moving all extremities, not speaking but following commands) Skin: Normal Color, Warm/Dry Focused Exam Lactate Level 05/25/22 10:20: Lactic Acid Level 1.09 Lactic Acid Level Laboratory Tests Test 05/25/22 10:20 Lactic Acid Level 1.09 MMOL/L (0.50-2.00) Progress/Results/Core Measures Suspected Sepsis SIRS Temperature: Pulse: 89 Respiratory Rate: 16 Laboratory Tests 05/25/22 10:20: White Blood Count 14.6H Blood Pressure 155 /106 Mean: 122 05/25/22 10:20: Lactic Acid Level 1.09 Laboratory Tests 05/25/22 10:20: Creatinine 0.86, Platelet Count 213, Total Bilirubin 1.3H 05/25/22 10:55: INR Comment 1.2 Results/Orders Lab Results Laboratory Tests Test 05/25/22 10:20 05/25/22 10:51 05/25/22 10:55 05/25/22 11:14 Range/Units White Blood Count 14.6 H 4.3-11.0 10^3/uL Red Blood Count 4.21 L 4.30-5.52 10^6/uL Hemoglobin 12.8 L 13.3-17.7 g/dL Hematocrit 40 40-54 % Mean Corpuscular Volume 94 80-99 fL Mean Corpuscular Hemoglobin 30 25-34 pg Mean Corpuscular Hemoglobin Concent 32 32-36 g/dL Red Cell Distribution Width 13.4 10.0-14.5 % Platelet Count 213 130-400 10^3/uL Mean Platelet Volume 11.6 9.0-12.2 fL Immature Granulocyte % (Auto) 1 % Neutrophils (%) (Auto) 77 H 42-75 % Lymphocytes (%) (Auto) 9 L 12-44 % Monocytes (%) (Auto) 14 H 0-12 % Eosinophils (%) (Auto) 0 0-10 % Basophils (%) (Auto) 0 0-10 % Neutrophils # (Auto) 11.2 H 1.8-7.8 10^3/uL Lymphocytes # (Auto) 1.3 1.0-4.0 10^3/uL Monocytes # (Auto) 2.0 H 0.0-1.0 10^3/uL Eosinophils # (Auto) 0.0 0.0-0.3 10^3/uL Basophils # (Auto) 0.0 0.0-0.1 10^3/uL Immature Granulocyte # (Auto) 0.1 0.0-0.1 10^3/uL Neutrophils % (Manual) 78 % Lymphocytes % (Manual) 10 % Monocytes % (Manual) 12 % Platelet Estimate ADEQUATE Blood Morphology Comment NORMAL Sodium Level 137 135-145 MMOL/L Potassium Level 4.2 3.6-5.0 MMOL/L Chloride Level 105 98-107 MMOL/L Carbon Dioxide Level 22 21-32 MMOL/L Anion Gap 10 5-14 MMOL/L Blood Urea Nitrogen 19 H 7-18 MG/DL Creatinine 0.86 0.60-1.30 MG/DL Estimat Glomerular Filtration Rate 95 BUN/Creatinine Ratio 22 Glucose Level 119 H 70-105 MG/DL Lactic Acid Level 1.09 0.50-2.00 MMOL/L Calcium Level 8.8 8.5-10.1 MG/DL Corrected Calcium 9.0 8.5-10.1 MG/DL Total Bilirubin 1.3 H 0.1-1.0 MG/DL Aspartate Amino Transf (AST/SGOT) 47 H 5-34 U/L Alanine Aminotransferase (ALT/SGPT) 32 0-55 U/L Alkaline Phosphatase 60 40-136 U/L Troponin I < 0.028 <0.028 NG/ML Total Protein 7.0 6.4-8.2 GM/DL Albumin 3.8 3.2-4.5 GM/DL Influenza Type A (RT-PCR) Not Detected Not Detecte Influenza Type B (RT-PCR) Not Detected Not Detecte SARS-CoV-2 RNA (RT-PCR) Not Detected Not Detecte Prothrombin Time 16.1 H 12.2-14.7 SEC INR Comment 1.2 0.8-1.4 Activated Partial Thromboplast Time 34 24-35 SEC Urine Color YELLOW Urine Clarity SL CLOUDY Urine pH 6.0 5-9 Urine Specific [place] 1.025 H 1.016-1.022 Urine Protein TRACE H NEGATIVE Urine Glucose (UA) NEGATIVE NEGATIVE Urine Ketones NEGATIVE NEGATIVE Urine Nitrite NEGATIVE NEGATIVE Urine Bilirubin NEGATIVE NEGATIVE Urine Urobilinogen 2.0 < = 1.0 MG/DL Urine Leukocyte Esterase NEGATIVE NEGATIVE Urine RBC (Auto) NEGATIVE NEGATIVE Urine RBC NONE /HPF Urine WBC NONE /HPF Urine Squamous Epithelial Cells RARE /HPF Urine Crystals NONE /LPF Urine Bacteria NEGATIVE /HPF Urine Casts NONE /LPF Urine Mucus NEGATIVE /LPF Urine Culture Indicated CULTURE PENDING My Orders Orders - ANAMIKA ROJAS MD Cbc With Automated Diff (05/25/22 10:30) Comprehensive Metabolic Panel (05/25/22 10:30) Blood Culture (05/25/22 10:30) Sputum Culture (05/25/22 10:30) Urinalysis (05/25/22 10:30) Urine Culture (05/25/22 10:30) Protime With Inr (05/25/22 10:30) Partial Thromboplastin Time (05/25/22 10:30) Chest 1 View, Ap/Pa Only (05/25/22 10:30) Ed Iv/Invasive Line Start (05/25/22 10:30) Ed Iv/Invasive Line Start (05/25/22 10:30) Ekg Tracing (05/25/22 10:30) Troponin I [place] (05/25/22 10:30) Vital Signs Adult Sepsis Patie Q15M (05/25/22 10:30) O2 (05/25/22 10:30) Remove Rings In Anticipation O (05/25/22 10:30) Lactic Acid Analyzer (05/25/22 10:30) Influenza A And B By Pcr (05/25/22 10:30) Ns Iv 1000 Ml (Sodium Chloride 0.9%) (05/25/22 10:30) Ceftriaxone 1 Gm Pre-Mix (Rocephin 1 Gm (05/25/22 10:30) Doxycycline Injection (Vibramycin Inject (05/25/22 10:30) Covid 19 Inhouse Test (05/25/22 10:30) Metronidazole 500mg/100ml Ivpb (Flagyl 5 (05/25/22 10:30) Ct Angio Chest W (R/O Pe) (05/25/22 10:33) Manual Differential (05/25/22 10:20) Acetaminophen Suppository (Tylenol Suppo (05/25/22 11:15) Iohexol Injection (Omnipaque 350 Mg/Ml 1 (05/25/22 12:00) Ns (Ivpb) (Sodium Chloride 0.9% Ivpb Bag (05/25/22 12:00) Ed Admission (Communication) (05/25/22 12:59) Medications Given in ED Current Medications Medications Dose Ordered Sig/Manuela Route Start Time Stop Time Status Last Admin Dose Admin Acetaminophen 650 mg ONCE ONCE OH 05/25/22 11:15 05/25/22 11:16 DC 05/25/22 11:07 650 MG Ceftriaxone Sodium/Dextrose 50 ml @ 100 mls/hr ONCE ONCE IV 05/25/22 10:30 05/25/22 10:59 DC 05/25/22 11:01 100 MLS/HR Doxycycline Hyclate 100 mg/ Sodium Chloride 100 ml @ 100 mls/hr ONCE ONCE IV 05/25/22 10:30 05/25/22 11:29 DC 05/25/22 11:36 100 MLS/HR Iohexol 100 ml ONCE ONCE IV 05/25/22 12:00 05/25/22 12:01 DC 05/25/22 13:15 100 ML Metronidazole 100 ml @ 100 mls/hr ONCE ONCE IV 05/25/22 10:30 05/25/22 11:29 DC 05/25/22 12:55 100 MLS/HR Sodium Chloride 100 ml ONCE ONCE IV 05/25/22 12:00 05/25/22 12:01 DC 05/25/22 13:15 80 ML Vital Signs/I&O 05/25/22 05/25/22 05/25/22 05/25/22 10:05 10:35 11:03 12:00 Temp 38.8 39.2 38.8 Pulse 89 Resp 16 B/P (MAP) 155/106 (122) Pulse Ox 100 O2 Delivery Nasal Cannula Nasal Cannula O2 Flow Rate 4.00 2.00 05/25/22 12:58 Temp 39.3 Capillary Refill : Less Than 3 Seconds Blood Pressure Mean: 122 Progress Note : Progress Note 66-year-old male with above history coming in due to fever, increasing oxygen demand, increasing confusion and general weakness. Of note, we contacted the [facility], and the staff state he does not speak at baseline. Patient was febrile on presentation and hypoxic. Placed on supplemental oxygen. With his increasing cough and his history of dementia, I am concerned for pneumonia. An IV was placed and basic labs were obtained including typical evaluation for sepsis including lactic acid and blood cultures. Given my concern for respiratory source, he was given ceftriaxone, doxycycline, as well as Flagyl to cover anaerobic bacteria potentially. He was given a bolus of IV fluids. He was given rectal Tylenol for his fever. EKG with no acute ischemic changes on my interpretation. Chest x-ray on my interpretation with patchiness in his left lower lobe concerning for pneumonia. CTA chest ordered given his history of DVT with his new hypoxia. I do not see any obvious PE, but I do see a pneumonia in his left lung base. His lactate is normal, and is not showing any concerns for severe sepsis at this time. He was given 1 L of IV fluids, but heart rate is normal, blood pressure is normal, and given his respiratory compromise is my biggest concern, I believe further IV fluids could be detrimental to him. I contacted Dr. Mosher, who admit the patient to the [facility] unit for further evaluation and management. ECG Initial ECG Impression Date: May 25, 2022 Initial ECG Impression Time: 11:00 Initial ECG Rate: 82 Initial ECG Rhythm: Normal Sinus Comment Narrow QRS, normal axis, no significant ST changes or T wave abnormalities, ther e is significant artifact from the patient shaking making the interpretation limited Diagnostic Imaging Diagonstic Imaging: Xray (chest), CT Comments [facility], [place] NAME: ABBY ANTONIO [facility] REC#: [id number] PT STATUS: REG ER : 1955 PHYSICIAN: ANAMIKA ROJAS MD ADMIT DATE: 05/25/22/ER Signed Date of Exam:05/25/22 CHEST 1 VIEW, AP/PA ONLY EXAMINATION: Chest radiograph, portable AP view. DATE: 05/25/2022 10:58 AM. INDICATION: 66-year-old male, cough. COMPARISON: May 05, 2020. FINDINGS: The heart size and mediastinal contours are unchanged. There is nonspecific left basilar airspace consolidation, very similar to the prior study. There is no identified pneumothorax. The right lung is grossly clear. IMPRESSION: Persistent and nonspecific left basilar airspace consolidation which may reflect pneumonia, aspiration, or other consolidative process. Components of atelectasis may also be present. Dictated by: Dictated on workstation # [id number] Dict: 05/25/22 110 Trans: 05/25/22 1116 [id number] Interpreted by: FELA SANDERS MD Electronically signed by: FELA SANDERS MD 05/25/226 NAME: ABBY ANTONIO [facility] REC#: [id number] PT STATUS: REG ER : 1955 PHYSICIAN: ANAMIKA ROJAS MD ADMIT DATE: 05/25/22/ER Draft Date of Exam:05/25/22 CT ANGIO CHEST W (R/O PE) INDICATION: Hypoxia, shortness of breath. COMPARISON: Radiographs from the same date. TECHNIQUE: Multiple contiguous axial CT images are obtained through the chest after the administration of intravenous contrast dated 05/25/2022. Sagittal and coronal reformatted images are reviewed. This includes coronal MIP reformatted images. Auto Exposure Controls were utilize during the CT exam to meet ALARA standards for radiation dose reduction. FINDINGS: No significant adenopathy within the chest. No significant dissection or aneurysm associated with the thoracic aorta. The heart is within normal limits in size. No significant pericardial effusion. No pleural effusion. The trachea is patent. No pneumothorax. Dense consolidation is noted within the left lower lobe. There is associated narrowing of the airway and air bronchograms. Similar-appearing opacities are seen slightly extending into the lingula. Minimal right basilar reticular opacities. Evaluation of subsegmental pulmonary arteries is limited secondary to respiratory motion. Within the limits of the examination, no significant filling defect within the central or segmental pulmonary arteries. Mural thickening of the distal esophagus. The visualized upper abdomen is otherwise unremarkable. Scattered osseous degenerative changes without acute osseous abnormality. Mild apex right curvature of the spine. IMPRESSION: No significant pulmonary embolus within the limits of the exam. Focal left basilar consolidation, greatest within the left lower lobe. This is favored to relate to pneumonia. Radiographic follow-up is recommended to ensure clearance. Minimal right basilar atelectasis and/or pneumonitis. Mural thickening of the distal esophagus, most likely related to underlying esophagitis. Dictated on workstation # [id number] Dict: 05/25/22 1313 Trans: 05/25/22 1327 [id number] Interpreted by: ROSEANNA NAVA MD Electronically signed by: Departure Impression Primary Impression: Pneumonia Qualified Codes: J18.9 - Pneumonia, unspecified organism Additional Impression: Respiratory failure Qualified Codes: J96.01 - Acute respiratory failure with hypoxia Disposition: ADMITTED INPATIENT Condition: Stable Admissions Decision to Admit Reason: Admit from ER (General) Decision to Admit/Date: May 25, 2022 Time/Decision to Admit Time: 12:50 Departure-Patient Inst. Referrals: DYLAN HAJI DO (PCP/Family) Primary Care Physician ANAMIKA ROJAS MD May 25, 2022 10:35
[2022-05-25 10:41] LABS: BASOPHILS % (AUTO) 0 % (0-10); EOSINOPHILS % (AUTO) 0 % (0-10); HEMATOCRIT 40 % (40-54); HEMOGLOBIN 12.8 g/dL (13.3-17.7); LYMPHOCYTES # (AUTO) 1.3 10^3/uL (1.0-4.0); LYMPHOCYTES % (AUTO) 9 % (12-44); MEAN CORPUSCULAR HEMOGLOBIN 30 pg (25-34); MEAN CORPUSCULAR HGB CONC 32 g/dL (32-36); MEAN CORPUSCULAR VOLUME 94 fL (80-99); MEAN PLATELET VOLUME 11.6 fL (9.0-12.2); MONOCYTES % (AUTO) 14 % (0-12); NEUTROPHILS # (AUTO) 11.2 10^3/uL (1.8-7.8); NEUTROPHILS % (AUTO) 77 % (42-75); PLATELET COUNT 213 10^3/uL (130-400); WHITE BLOOD COUNT 14.6 10^3/uL (4.3-11.0)
[2022-05-25 10:46] LABS: ALBUMIN 3.8 GM/DL (3.2-4.5); CHLORIDE 105 MMOL/L (98-107); POTASSIUM 4.2 MMOL/L (3.6-5.0); SODIUM 137 MMOL/L (135-145)
[2022-05-25 10:47] LABS: CALCIUM 8.8 MG/DL (8.5-10.1)
[2022-05-25 10:48] LABS: GLUCOSE 119 MG/DL (70-105)
[2022-05-25 10:50] LABS: CARBON DIOXIDE 22 MMOL/L (21-32)
[2022-05-25 10:51] LABS: BILIRUBIN,TOTAL 1.3 MG/DL (0.1-1.0)
[2022-05-25 10:52] LABS: ALKALINE PHOSPHATASE 60 U/L (40-136); CREATININE SERUM 0.86 MG/DL (0.60-1.30); GFR ESTIMATED 95
[2022-05-25 10:53] LABS: BUN/CREATININE RATIO 22
[2022-05-25 10:55] LABS: ALANINE AMINOTRANSFERASE 32 U/L (0-55)
[2022-05-25 11:12] LABS: LYMPHOCYTES % (MANUAL) 10 %; MONOCYTES % (MANUAL) 12 %; NEUTROPHILS % (MANUAL) 78 %; PLATELET ESTIMATE ADEQUATE; RBC MORPH NORMAL
[2022-05-25] MEDS ORDERED: ACETAMINOPHEN 650 MG SUPP (TYLENOL) PR ONE (11:15)
--- NOTE | 2022-05-25 11:16 | Diagnostic Imaging Report ---
EXAMINATION: Chest radiograph, portable AP view. DATE: 05/25/2022 10:58 AM. INDICATION: 66-year-old male, cough. COMPARISON: May 05, 2020. FINDINGS: The heart size and mediastinal contours are unchanged. There is nonspecific left basilar airspace consolidation, very similar to the prior study. There is no identified pneumothorax. The right lung is grossly clear. IMPRESSION: Persistent and nonspecific left basilar airspace consolidation which may reflect pneumonia, aspiration, or other consolidative process. Components of atelectasis may also be present. Dictated by: Dictated on workstation # [id number]
[2022-05-25 11:23] LABS: BILIRUBIN,URINE NEGATIVE (NEGATIVE); CLARITY,URINE SL CLOUDY; COLOR,URINE YELLOW; GLUCOSE, URINE (UA) NEGATIVE (NEGATIVE); KETONES,URINE NEGATIVE (NEGATIVE); LEUKOCYTE ESTERASE ,URINE NEGATIVE (NEGATIVE); NITRITE,URINE NEGATIVE (NEGATIVE); PROTEIN,URINE TRACE (NEGATIVE)
[2022-05-25 11:25] LABS: INR 1.2 (0.8-1.4); PROTHROMBIN TIME PATIENT 16.1 SEC (12.2-14.7)
[2022-05-25 11:33] LABS: BACTERIA,URINE NEGATIVE /HPF; SQUAMOUS EPITHELIAL CELL,UR RARE /HPF
[2022-05-25] MEDS ORDERED: IOHEXOL 350 MG/ML 100 ML (OMNIPAQUE 350) VIAL IV ONE (12:00)
[2022-05-25] MEDS ORDERED: NS 100 ML (IVPB) BAG IV ONE (12:00)
--- NOTE | 2022-05-25 13:27 | Diagnostic Imaging Report ---
INDICATION: Hypoxia, shortness of breath. COMPARISON: Radiographs from the same date. TECHNIQUE: Multiple contiguous axial CT images are obtained through the chest after the administration of intravenous contrast dated 05/25/2022. Sagittal and coronal reformatted images are reviewed. This includes coronal MIP reformatted images. Auto Exposure Controls were utilize during the CT exam to meet ALARA standards for radiation dose reduction. FINDINGS: No significant adenopathy within the chest. No significant dissection or aneurysm associated with the thoracic aorta. The heart is within normal limits in size. No significant pericardial effusion. No pleural effusion. The trachea is patent. No pneumothorax. Dense consolidation is noted within the left lower lobe. There is associated narrowing of the airway and air bronchograms. Similar-appearing opacities are seen slightly extending into the lingula. Minimal right basilar reticular opacities. Evaluation of subsegmental pulmonary arteries is limited secondary to respiratory motion. Within the limits of the examination, no significant filling defect within the central or segmental pulmonary arteries. Mural thickening of the distal esophagus. The visualized upper abdomen is otherwise unremarkable. Scattered osseous degenerative changes without acute osseous abnormality. Mild apex right curvature of the spine. IMPRESSION: No significant pulmonary embolus within the limits of the exam. Focal left basilar consolidation, greatest within the left lower lobe. This is favored to relate to pneumonia. Radiographic follow-up is recommended to ensure clearance. Minimal right basilar atelectasis and/or pneumonitis. Mural thickening of the distal esophagus, most likely related to underlying esophagitis. Dictated by: Dictated on workstation # [id number]
[2022-05-25] MEDS ORDERED: ENOXAPARIN 40 MG/0.4 ML (LOVENOX) SYR SC SCH (14:00)
[2022-05-25] MEDS ORDERED: MILK OF MAGNESIA 400 MG/5 ML 30 ML UDC PO PRN (14:00)
[2022-05-25] MEDS ORDERED: polyethylene glycoL POWDER 17 GM (MIRALAX) PACK PO PRN (14:00)
[2022-05-25] MEDS ORDERED: LACTULOSE SYRUP 10GM/15ML (ENULOSE) 30ML UDC PO PRN (14:00)
[2022-05-25] MEDS ORDERED: BISACODYL 10 MG SUPP (DULCOLAX) PR PRN (14:00)
[2022-05-25] MEDS ORDERED: ONDANSETRON 4 MG (ZOFRAN) ORAL DISSOLVE TAB PO PRN (14:00)
[2022-05-25] MEDS ORDERED: ACETAMINOPHEN 325 MG TABLET PO PRN ×2 (14:00→22:00)
[2022-05-25] MEDS ORDERED: ANTACID SUSP 30 ML UDC (MYLANTA) PO PRN (14:00)
[2022-05-25] MEDS ORDERED: NS IV 500 ML 500 ML IV PRN (14:00)
[2022-05-25] MEDS ORDERED: CALCIUM CARBONATE 500 MG (TUMS) TAB.CHEW PO PRN (14:00)
[2022-05-25] MEDS ORDERED: DOXYCYCLINE INJECTION 100 MG in NS (IVPB) 100 ML IV SCH (14:00)
[2022-05-25] MEDS ORDERED: MELATONIN 3 MG TABLET PO PRN (14:00)
[2022-05-25] MEDS ORDERED: ONDANSETRON 4 MG/2 ML (SDV) Z0FRAN IV PRN (14:00)
[2022-05-25] MEDS ORDERED: PIPERACILLIN SODIUM/TAZOBACTAM 4.5 GM in NS (IVPB) 100 ML IV ONE (14:30)
[2022-05-25] MEDS: LACTATED RINGERS 1,000 ML IV SCH ×2 (15:13→23:59)
[2022-05-25] MEDS ORDERED: RT-ALBUTEROL SULF 2.5 MG/3 ML PRE-MIX VIAL INH PRN (15:15)
[2022-05-25] MEDS ORDERED: APIX5TAB PO (16:14)
[2022-05-25] MEDS ORDERED: SERT-412 PO (16:14)
[2022-05-25] MEDS: DOCUSATE SODIUM 100 MG (COLACE) CAP PO SCH (21:26)
[2022-05-25] MEDS: risperiDONE 0.25 MG (RisperDAL) TAB PO SCH (21:26)
[2022-05-25] MEDS: DOXYCYCLINE INJECTION 100 MG in NS (IVPB) 100 ML IV SCH (21:26)
[2022-05-25] MEDS: APIXABAN 5 MG (ELIQUIS) TABLET PO SCH (21:26)
[2022-05-25] MEDS: SENNOSIDES 8.6 MG (SENOKOT) TAB PO SCH (21:26)
[2022-05-25] MEDS: busPIRone 5 MG (BUSPAR) TAB PO SCH (21:27)
[2022-05-25] MEDS: MIRTAZAPINE 15 MG (REMERON) TAB PO SCH (21:27)
[2022-05-25] MEDS: PIPERACILLIN SODIUM/TAZOBACTAM 4.5 GM in NS (IVPB) 100 ML IV SCH (23:58)
[2022-05-26] VITALS (7 sets, daily range): BP systolic 97–130; BP diastolic 50–93
[2022-05-26 05:42] LABS: BASOPHILS % (AUTO) 0 % (0-10); EOSINOPHILS % (AUTO) 0 % (0-10); HEMATOCRIT 33 % (40-54); HEMOGLOBIN 10.5 g/dL (13.3-17.7); LYMPHOCYTES # (AUTO) 1.8 10^3/uL (1.0-4.0); LYMPHOCYTES % (AUTO) 14 % (12-44); MEAN CORPUSCULAR HEMOGLOBIN 30 pg (25-34); MEAN CORPUSCULAR HGB CONC 32 g/dL (32-36); MEAN CORPUSCULAR VOLUME 93 fL (80-99); MEAN PLATELET VOLUME 11.4 fL (9.0-12.2); MONOCYTES # (AUTO) 1.8 10^3/uL (0.0-1.0); MONOCYTES % (AUTO) 13 % (0-12); NEUTROPHILS # (AUTO) 9.7 10^3/uL (1.8-7.8); NEUTROPHILS % (AUTO) 72 % (42-75); PLATELET COUNT 170 10^3/uL (130-400); WHITE BLOOD COUNT 13.5 10^3/uL (4.3-11.0)
[2022-05-26 06:08] LABS: CALCIUM 8.3 MG/DL (8.5-10.1); CREATININE SERUM 0.92 MG/DL (0.60-1.30); MAGNESIUM 1.5 MG/DL (1.6-2.4); POTASSIUM 3.3 MMOL/L (3.6-5.0)
[2022-05-26] MEDS: PIPERACILLIN SODIUM/TAZOBACTAM 4.5 GM in NS (IVPB) 100 ML IV SCH ×3 (06:35→22:12)
[2022-05-26] MEDS: MAGNESIUM 1 GM/100 ML IVPB 100 ML IV SCH (08:00)
--- NOTE | 2022-05-26 09:07 | History & Physical-Hospitalist ---
RADHA NOE 05/26/22 0907: History of Present Illness HPI/Chief Complaint Laci Montana is a nonverbal poor historian presenting from [facility] due to oxygen saturations in 80s, worsening cough, and confusion. EMS gave 4L oxygen and oxygen saturation increased to 90s. On arrival to ED, pt received CXR showing non-specific changes suspicious for pneumonia or aspiration. Pt received CTA chest to r/o pulmonary embolism and confirmed pneumonia. Pt at the time of interview was eating breakfast with aid from tech. Due to pt's nonverbal status, he didn't participate in interview. Source: EMS notes reviewed Exam Limitations: language barrier, physical impairment Date Seen 05/26/22 Attending Physician Ramirez Blackmon DO PCP Admitting Physician: Jose George MD Attending Physician: Jose George MD Referring Physician Date of Admission May 25, 2022 at 13:35 Home Medications & Allergies Home Medications Reviewed patient Home Medication Reconciliation performed by pharmacy medication reconciliations a and p technician and/or nursing. Patients Allergies have been reviewed. Allergies Allergies Coded Allergies No Known Drug Allergies (Unverified05/05/20) Past Incfddc-Gxizbl-Rnfkcm Hx Patient Social History Tobacco Use?: No Smoking Status: Unknown if Ever Smoked Use of E-Cig and/or Vaping [place]: Unknown if Ever Used Substance use?: No Alcohol Use?: No Pt feels they are or have been: Unable to obtain Current Status Advance Directives: No Communicates: Verbally Primary Language: Romanian Preferred Spoken Language: Romanian Implanted or Applied Medical D: None Past Medical History Dementia Review of Systems ROS-Unable to Obtain: Non-verbal w/ Dementia Physical Exam Physical Exam Vital Signs Vital Signs - First Documented 05/25/22 10:05 Temp 38.8 Pulse 89 Resp 16 B/P (MAP) 155/106 (122) Pulse Ox 100 O2 Delivery Nasal Cannula O2 Flow Rate 4.00 Capillary Refill : Less Than 3 Seconds Height, Weight, BMI Height: '" Weight: lbs. oz. kg; 22.98 BMI Method: General Appearance: No Apparent Distress Respiratory: Chest Non Tender, Lungs Clear Neurologic/Psychiatric: Alert Skin: Normal Color, Warm/Dry Results Results/Procedures Labs Laboratory Tests 05/25/22 10:20 05/26/22 05:24 Patient resulted labs reviewed. Assessment/Plan Admission Diagnosis Reason for Inpatient Admission: Assessment and Plan Acute Hypoxic Respiratory Failure CTA Chest/Thorax- r/o pulmonary embolism Oxygen Supplementation as needed MAT Protocol Sepsis secondary to Pneumonia SIRS +: Fever; Elevated WBC CXR - nonspecific left basilar airspace consolidation which may reflect pneumonia, aspiration, or other consolidative process CTA Chest/Thorax- r/o pulmonary embolism; Focal left basilar consolidation, greatest within the left lower lobe. This is favored to relate to pneumonia. Started Zoysn and Doxycycline Started IVF- Lactated Ringers Anemia Monitor H&H and Transfuse as needed Hypokalemia Started IVF - Lactated Ringers Mood Disorders Start Sertaline Start Mirtazapine Start Buspar Start Risperidone DVT PPX - Eliquis Diagnosis/Problems Diagnosis/Problems (1) Sepsis Status: Acute (2) Pneumonia Status: Acute Qualifiers: Pneumonia type: due to unspecified organism Laterality: left Lung location: lower lobe of lung Qualified Codes: J18.9 - Pneumonia, unspecified organism (3) Respiratory failure Status: Acute Qualifiers: Chronicity: acute Respiratory failure complication: hypoxia Qualified Codes: J96.01 - Acute respiratory failure with hypoxia (4) Hypokalemia (5) Mood disorder JOSE GEORGE MD 05/26/22 1620: History of Present Illness Time Seen by a Provider: 10:35 Past Rnotyuy-Svcvkf-Rhgfws Hx Family Medical History No Pertinent Family Hx Review of Systems Constitutional: see HPI Results Results/Procedures Imaging: Reviewed Imaging Report Assessment/Plan Admission Diagnosis Sepsis due to pneumonia Admission Status: Inpatient Order (span 2 midnights) Reason for Inpatient Admission: IV antibiotics Assessment and Plan Admitted with sepsis due to pneumonia. Likely due to aspiration. Zosyn ordered. Supplemental oxygen as needed. Supervisory-Addendum Brief Verification & Attestation Participated in pt care: history, MDM, physical Personally performed: exam, history, MDM, supervision of care Care discussed with: Medical Student Procedures: n/a Results interpretation: Verified all documentation A medical student performed and documented this service in my presence. I reviewed and verified all information documented by the medical student and made modifications to such information, when appropriate. I personally performed the physical exam and medical decision making. RADHA NOE May 26, 2022 09:07 JOSE GEORGE MD May 26, 2022 16:20
[2022-05-26] MEDS: busPIRone 5 MG (BUSPAR) TAB PO SCH ×2 (09:21→21:22)
[2022-05-26] MEDS: APIXABAN 5 MG (ELIQUIS) TABLET PO SCH ×2 (09:22→21:22)
[2022-05-26] MEDS: KCL 20 MEQ TAB (K-DUR) PO SCH (09:22)
[2022-05-26] MEDS: risperiDONE 0.25 MG (RisperDAL) TAB PO SCH ×2 (09:22→21:22)
[2022-05-26] MEDS: SENNOSIDES 8.6 MG (SENOKOT) TAB PO SCH ×2 (09:22→21:22)
[2022-05-26] MEDS: SERTRALINE 50 MG (ZOLOFT) TABLET PO SCH (09:23)
[2022-05-26] MEDS: DOCUSATE SODIUM 100 MG (COLACE) CAP PO SCH ×2 (09:23→21:22)
[2022-05-26] MEDS: DOXYCYCLINE INJECTION 100 MG in NS (IVPB) 100 ML IV SCH ×2 (09:23→20:52)
[2022-05-26] MEDS: POTASSIUM CL 10MEQ/50ML IVPB 50 ML IV SCH (10:05)
[2022-05-26] MEDS: LACTATED RINGERS 1,000 ML IV SCH ×2 (10:07→22:11)
[2022-05-26] MEDS: MIRTAZAPINE 15 MG (REMERON) TAB PO SCH (21:22)
[2022-05-27] VITALS (7 sets, daily range): BP systolic 107–147; BP diastolic 63–79
[2022-05-27] MEDS: LACTATED RINGERS 1,000 ML IV SCH ×3 (04:12→14:46)
[2022-05-27] MEDS: PIPERACILLIN SODIUM/TAZOBACTAM 4.5 GM in NS (IVPB) 100 ML IV SCH ×3 (05:05→20:26)
[2022-05-27 05:56] LABS: BASOPHILS % (AUTO) 0 % (0-10); EOSINOPHILS # (AUTO) 0.1 10^3/uL (0.0-0.3); EOSINOPHILS % (AUTO) 1 % (0-10); HEMATOCRIT 34 % (40-54); HEMOGLOBIN 10.8 g/dL (13.3-17.7); LYMPHOCYTES # (AUTO) 1.8 10^3/uL (1.0-4.0); LYMPHOCYTES % (AUTO) 18 % (12-44); MEAN CORPUSCULAR HEMOGLOBIN 30 pg (25-34); MEAN CORPUSCULAR HGB CONC 32 g/dL (32-36); MEAN CORPUSCULAR VOLUME 93 fL (80-99); MEAN PLATELET VOLUME 11.5 fL (9.0-12.2); MONOCYTES # (AUTO) 1.5 10^3/uL (0.0-1.0); MONOCYTES % (AUTO) 15 % (0-12); NEUTROPHILS # (AUTO) 6.5 10^3/uL (1.8-7.8); NEUTROPHILS % (AUTO) 65 % (42-75); PLATELET COUNT 178 10^3/uL (130-400)
[2022-05-27 06:16] LABS: CALCIUM 8.9 MG/DL (8.5-10.1); CREATININE SERUM 1.04 MG/DL (0.60-1.30); MAGNESIUM 1.9 MG/DL (1.6-2.4); POTASSIUM 3.9 MMOL/L (3.6-5.0)
[2022-05-27] MEDS: POTASSIUM CL 10MEQ/50ML IVPB 50 ML IV SCH (06:26)
[2022-05-27] MEDS: KCL 20 MEQ TAB (K-DUR) PO SCH (06:26)
[2022-05-27] MEDS: POTASSIUM BICARB 20 MEQ (EFFER-K) TABLET PO SCH (06:26)
[2022-05-27] MEDS: MAGNESIUM 1 GM/100 ML IVPB 100 ML IV SCH ×3 (06:27→08:02)
[2022-05-27] MEDS ORDERED: POTASSIUM BICARB 20 MEQ (EFFER-K) TABLET PO ONE (06:30)
[2022-05-27] MEDS: busPIRone 5 MG (BUSPAR) TAB PO SCH ×2 (08:07→20:18)
[2022-05-27] MEDS: SERTRALINE 50 MG (ZOLOFT) TABLET PO SCH (08:07)
[2022-05-27] MEDS: APIXABAN 5 MG (ELIQUIS) TABLET PO SCH ×2 (08:08→20:18)
[2022-05-27] MEDS: DOCUSATE SODIUM 100 MG (COLACE) CAP PO SCH ×2 (08:08→20:18)
[2022-05-27] MEDS: SENNOSIDES 8.6 MG (SENOKOT) TAB PO SCH ×2 (08:08→20:18)
[2022-05-27] MEDS: risperiDONE 0.25 MG (RisperDAL) TAB PO SCH ×2 (08:09→20:18)
[2022-05-27] MEDS: DOXYCYCLINE 100 MG (VIBRAMYCIN) TABLET PO SCH ×2 (08:09→20:18)
--- NOTE | 2022-05-27 13:05 | Progress Note - Hospitalist ---
RADHA NOE 05/27/22 1305: Subjective HPI/CC On Admission Date Seen by Provider: May 27, 2022 Time Seen by Provider: 08:40 Laci Montana is a nonverbal poor historian presenting from [facility] due to oxygen saturations in 80s, worsening cough, and confusion. EMS gave 4L oxygen and oxygen saturation increased to 90s. On arrival to ED, pt received CXR showing non-specific changes suspicious for pneumonia or aspiration. Pt received CTA chest to r/o pulmonary embolism and confirmed pneumonia. Pt at the time of interview was eating breakfast with aid from tech. Due to pt's nonverbal status, he didn't participate in interview. Subjective/Events-last exam Pt was laying in bed w/o anyone at bedside during assessment. Pt is nonverbal and didn't participate in interview. Pt seemed to be doing well and breathing well on 3L oxygen NC. Focused Exam Lactate Level 05/25/22 10:20: Lactic Acid Level 1.09 Objective Exam Vital Signs Vital Signs Date Time Temp Pulse Resp B/P (MAP) Pulse Ox O2 Delivery O2 Flow Rate FiO2 05/27/22 12:52 69 05/27/22 11:39 36.5 17 129/74 (92) 84 Nasal Cannula 3.00 Capillary Refill : Less Than 3 Seconds General Appearance: No Apparent Distress Respiratory: Lungs Clear, Normal Breath Sounds Cardiovascular: Regular Rate, Rhythm, Normal Peripheral Pulses Gastrointestinal: Normal Bowel Sounds, Soft; No Distended Extremity: Normal Inspection, No Pedal Edema Neurologic/Psychiatric: Alert Skin: Normal Color, Warm/Dry Lymphatic: No Adenopathy Results/Procedures Lab Laboratory Tests 05/27/22 05:39 Patient resulted labs reviewed. Imaging: Reviewed Imaging Report Assessment/Plan Assessment and Plan Assess & Plan/Chief Complaint Acute Hypoxic Respiratory Failure CTA Chest/Thorax- r/o pulmonary embolism Oxygen Supplementation as needed MAT Protocol Sepsis secondary to Pneumonia WBC within normal limits Continue Zoysn and Doxycycline Continue IVF- Lactated Ringers Anemia Monitor H&H and Transfuse as needed Hypokalemia Continue IVF Mood Disorders Continue Sertaline Continue Mirtazapine Continue Buspar Continue Risperidone DVT PPX Continue Eliquis Diagnosis/Problems Diagnosis/Problems (1) Sepsis Status: Acute (2) Pneumonia Status: Acute Qualifiers: Qualified Codes: J18.9 - Pneumonia, unspecified organism (3) Respiratory failure Status: Acute Qualifiers: Qualified Codes: J96.01 - Acute respiratory failure with hypoxia (4) Hypokalemia (5) Mood disorder Status: Chronic JOSE GEORGE MD 05/27/22 1506: Subjective HPI/CC On Admission Time Seen by Provider: 11:10 Objective Exam General Appearance: No Apparent Distress, WD/WN Respiratory: Lungs Clear, No Respiratory Distress Cardiovascular: Regular Rate, Rhythm, No Murmur Gastrointestinal: Normal Bowel Sounds, Soft Extremity: Normal Inspection, No Pedal Edema Neurologic/Psychiatric: Alert, Aphasia Skin: Normal Color, Warm/Dry Assessment/Plan Assessment and Plan Assess & Plan/Chief Complaint Continue antibiotics. Likely discharge back to [facility] tomorrow if remains stable. Diagnosis/Problems Diagnosis/Problems (1) Sepsis due to pneumonia Status: Acute (2) Respiratory failure Status: Acute Qualifiers: Qualified Codes: J96.01 - Acute respiratory failure with hypoxia (3) Mood disorder Status: Chronic (4) Nonverbal Status: Chronic Supervisory-Addendum Brief Verification & Attestation Participated in pt care: history, MDM, physical Personally performed: exam, history, MDM, supervision of care Care discussed with: Medical Student Procedures: n/a Results interpretation: Verified all documentation A medical student performed and documented this service in my presence. I reviewed and verified all information documented by the medical student and made modifications to such information, when appropriate. I personally performed the physical exam and medical decision making. RADHA NOE May 27, 2022 13:05 JOSE GEORGE MD May 27, 2022 15:06
[2022-05-27] MEDS: MIRTAZAPINE 15 MG (REMERON) TAB PO SCH (20:18)
[2022-05-27] MEDS ORDERED: polyethylene glycoL POWDER 17 GM (MIRALAX) PACK PO SCH (21:00)
[2022-05-28 03:29] VITALS: BP 149/57
[2022-05-28] MEDS: PIPERACILLIN SODIUM/TAZOBACTAM 4.5 GM in NS (IVPB) 100 ML IV SCH (04:52)
[2022-05-28 06:01] LABS: BASOPHILS % (AUTO) 1 % (0-10); EOSINOPHILS # (AUTO) 0.3 10^3/uL (0.0-0.3); EOSINOPHILS % (AUTO) 4 % (0-10); HEMATOCRIT 35 % (40-54); HEMOGLOBIN 11.6 g/dL (13.3-17.7); LYMPHOCYTES # (AUTO) 1.9 10^3/uL (1.0-4.0); LYMPHOCYTES % (AUTO) 21 % (12-44); MEAN CORPUSCULAR HEMOGLOBIN 30 pg (25-34); MEAN CORPUSCULAR HGB CONC 33 g/dL (32-36); MEAN CORPUSCULAR VOLUME 91 fL (80-99); MEAN PLATELET VOLUME 11.7 fL (9.0-12.2); MONOCYTES # (AUTO) 1.3 10^3/uL (0.0-1.0); MONOCYTES % (AUTO) 15 % (0-12); NEUTROPHILS # (AUTO) 5.2 10^3/uL (1.8-7.8); NEUTROPHILS % (AUTO) 59 % (42-75); PLATELET COUNT 231 10^3/uL (130-400); WHITE BLOOD COUNT 8.8 10^3/uL (4.3-11.0)
[2022-05-28 06:24] LABS: CALCIUM 8.9 MG/DL (8.5-10.1); CREATININE SERUM 0.92 MG/DL (0.60-1.30); POTASSIUM 4.2 MMOL/L (3.6-5.0)
[2022-05-28] MEDS: POTASSIUM CL 10MEQ/50ML IVPB 50 ML IV SCH (06:27)
[2022-05-28] MEDS: MAGNESIUM 1 GM/100 ML IVPB 100 ML IV SCH (06:28)
[2022-05-28] MEDS: POTASSIUM BICARB 20 MEQ (EFFER-K) TABLET PO SCH (06:28)
[2022-05-28] MEDS: KCL 20 MEQ TAB (K-DUR) PO SCH (06:28)
[2022-05-28 08:30] VITALS: BP 122/70
[2022-05-28] MEDS: SENNOSIDES 8.6 MG (SENOKOT) TAB PO SCH (08:41)
[2022-05-28] MEDS: DOCUSATE SODIUM 100 MG (COLACE) CAP PO SCH (08:54)
[2022-05-28] MEDS: risperiDONE 0.25 MG (RisperDAL) TAB PO SCH (08:54)
[2022-05-28] MEDS: busPIRone 5 MG (BUSPAR) TAB PO SCH (08:54)
[2022-05-28] MEDS: DOXYCYCLINE 100 MG (VIBRAMYCIN) TABLET PO SCH (08:54)
[2022-05-28] MEDS: SERTRALINE 50 MG (ZOLOFT) TABLET PO SCH (08:54)
[2022-05-28] MEDS: APIXABAN 5 MG (ELIQUIS) TABLET PO SCH (08:54)
[2022-05-28 09:49] VITALS: BP 122/70
[2022-05-28 11:13] VITALS: BP 154/57
[2022-05-28] MEDS ORDERED: AMOX1TAB12 PO (12:03)
[2022-05-28 12:33] VITALS: BP 154/57
--- NOTE | 2022-05-28 12:54 | Discharge Summary ---
RADHA NOE 05/28/22 1254: Diagnosis/Chief Complaint Date of Admission May 25, 2022 at 13:35 Date of Discharge Discharge Date: May 28, 2022 Discharge Time: 12:48 Admission Diagnosis Sepsis due to pneumonia Primary Care Dylan Haji DO Discharge Diagnosis (1) Sepsis due to pneumonia Status: Acute (2) Respiratory failure Status: Acute (3) Mood disorder Status: Chronic (4) Nonverbal Status: Chronic Discharge Summary Discharge Physical Exam Allergies: Coded Allergies: No Known Drug Allergies (Unverified , 05/05/20) Vitals & I&Os Vital Signs Date Time Temp Pulse Resp B/P (MAP) Pulse Ox O2 Delivery O2 Flow Rate FiO2 05/28/22 12:33 36.7 77 16 154/57 95 Room Air 0.00 General Appearance: No Apparent Distress Respiratory: Chest Non Tender, Lungs Clear, Normal Breath Sounds Cardiovascular: Regular Rate, Rhythm, No Edema, Normal Peripheral Pulses Gastrointestinal: Normal Bowel Sounds, Non Tender, Soft Skin: Normal Color, Warm/Dry Neurologic/Psychiatric: Alert Hospital Course Laci Montana is a nonverbal poor historian presenting from [facility] due to oxygen saturations in 80s, worsening cough, and confusion. EMS gave 4L oxygen and oxygen saturation increased to 90s. On arrival to ED, pt received CXR showing non-specific changes suspicious for pneumonia or aspiration. Pt received CTA chest to r/o pulmonary embolism and confirmed pneumonia. Pt's admitting diagnosis was Sepsis Secondary to Pneumonia. During stay pt was given oxygen support as needed, given Zoysn and Doxycycline for pneumonia, and cared for chronic conditions. Pt continued to improve and currently on room air w/ oxygen saturations w/in normal limits. Pt is ready for discharge and will continue course of antibiotics. Labs (last 24 hrs) Laboratory Tests 05/28/22 05:13: White Blood Count 8.8, Red Blood Count 3.87L, Hemoglobin 11.6L, Hematocrit 35L, Mean Corpuscular Volume 91, Mean Corpuscular Hemoglobin 30, Mean Corpuscular Hemoglobin Concent 33, Red Cell Distribution Width 13.1, Platelet Count 231, Mean Platelet Volume 11.7, Immature Granulocyte % (Auto) 2, Neutrophils (%) (Auto) 59, Lymphocytes (%) (Auto) 21, Monocytes (%) (Auto) 15H, Eosinophils (%) (Auto) 4, Basophils (%) (Auto) 1, Neutrophils # (Auto) 5.2, Lymphocytes # (Auto) 1.9, Monocytes # (Auto) 1.3H, Eosinophils # (Auto) 0.3, Basophils # (Auto) 0.0, Immature Granulocyte # (Auto) 0.1, Sodium Level 140, Potassium Level 4.2, C hloride Level 109H, Carbon Dioxide Level 21, Anion Gap 10, Blood Urea Nitrogen 15, Creatinine 0.92, Estimat Glomerular Filtration Rate 91, BUN/Creatinine Ratio 16, Glucose Level 90, Calcium Level 8.9, Magnesium Level 2.0 Microbiology 05/25/22 Urine Culture - Final, Complete NO GROWTH 05/25/22 Blood Culture - Preliminary, Resulted No growth Patient resulted labs reviewed. Pending Labs Laboratory Tests 05/28/22 05:13: White Blood Count 8.8, Red Blood Count 3.87, Hemoglobin 11.6, Hematocrit 35, Mean Corpuscular Volume 91, Mean Corpuscular Hemoglobin 30, Mean Corpuscular Hemoglobin Concent 33, Red Cell Distribution Width 13.1, Platelet Count 231, Mean Platelet Volume 11.7, Immature Granulocyte % (Auto) 2, Neutrophils (%) (Auto) 59, Lymphocytes (%) (Auto) 21, Monocytes (%) (Auto) 15, Eosinophils (%) (Auto) 4, Basophils (%) (Auto) 1, Neutrophils # (Auto) 5.2, Lymphocytes # (Auto) 1.9, Monocytes # (Auto) 1.3, Eosinophils # (Auto) 0.3, Basophils # (Auto) 0.0, Immature Granulocyte # (Auto) 0.1, Sodium Level 140, Potassium Level 4.2, Chloride Level 109, Carbon Dioxide Level 21, Anion Gap 10, Blood Urea Nitrogen 15, Creatinine 0.92, Estimat Glomerular Filtration Rate 91, BUN/Creatinine Ratio 16, Glucose Level 90, Calcium Level 8.9, Magnesium Level 2.0 Imaging: Reviewed Imaging Report Discharge Home Medications: Active Scripts Active Amox Tr-K Clv 875-125 mg Tab (Amoxicillin/Potassium Clav) 875 Mg-125 Mg Tablet 1 Each PO BID 5 Days Reported Sertraline HCl 25 Mg Tablet 25 Mg PO DAILY Eliquis (Apixaban) 5 Mg Tablet 5 Mg PO BID Ondansetron HCl 4 Mg Tablet 4 Mg PO Q8H PRN Tylenol (Acetaminophen) 325 Mg Capsule 650 Mg PO Q4H PRN Milk of Magnesia (Magnesium Hydroxide) 400 Mg/5 Ml Oral.susp 30 Ml PO DAILY PRN Anti-Diarrheal (Loperamide HCl) 2 Mg Capsule 2-4 Mg PO UD PRN Bisacodyl 10 Mg Supp.rect 10 Mg RC DAILY PRN USE IF MILK OF MAG NOT EFFECTIVE Risperidone 0.5 Mg Tablet 0.5 Mg PO BID Mirtazapine 15 Mg Tablet 15 Mg PO HS Melatonin 3 Mg Capsule 6 Mg PO HS TAKES 2 (3MG) CAPS Buspirone HCl 5 Mg Tablet 10 Mg PO TID TAKES 2 (5MG) TABS Instructions to patient/family Please see electronic discharge instructions given to patient. Copy Copies To 1: DYLAN HAJI JARIN M MD 05/28/22 2445: Diagnosis/Chief Complaint Discharge Diagnosis Sepsis due to pneumonia (1) Sepsis due to pneumonia Status: Acute (2) Respiratory failure Status: Acute (3) Mood disorder Status: Chronic (4) Nonverbal Status: Chronic Discharge Summary Discharge Physical Exam Allergies: Coded Allergies: No Known Drug Allergies (Unverified , 05/05/20) Hospital Course Was the Problem List Reviewed?: Yes Imaging: Reviewed Imaging Report Discussion & Recommendations Discharge Planning: <30 minutes discharge planning Copy Copies To 1: DYLAN HAJI DO Supervisory-Addendum Brief Verification & Attestation Participated in pt care: history, MDM, physical Personally performed: exam, history, MDM, supervision of care Care discussed with: Medical Student Procedures: n/a Results interpretation: Verified all documentation A medical student performed and documented this service in my presence. I reviewed and verified all information documented by the medical student and made modifications to such information, when appropriate. I personally performed the physical exam and medical decision making. Problem Qualifiers (1) Respiratory failure: Chronicity: acute Respiratory failure complication: hypoxia Qualified Codes: J96.01 - Acute respiratory failure with hypoxia RADHA NOE May 28, 2022 12:54 JOSE GEORGE MD May 28, 2022 18:55
== END 2022-05-28 14:04 | disposition home or self-care (01) | DRG 871 ==
LOC: EDUNIT# 10:04 → ER 10:05 → 4TH 13:35
PROVIDERS: ADMIT Internal Medicine; ATTEND Internal Medicine
PROC: 5A0935A Assistance with Respiratory Ventilation, Less than 24 Consecutive Hours, High Flow/Velocity Cannula (ICD-10-PCS; principal; 2022-05-25)
DX: A41.9 Sepsis, unspecified organism (principal); J18.9 Pneumonia, unspecified organism; J96.01 Acute respiratory failure with hypoxia; F03.918 Unspecified dementia, unspecified severity, with other behavioral disturbance; F39 Unspecified mood [affective] disorder; D64.9 Anemia, unspecified; E87.6 Hypokalemia; F41.9 Anxiety disorder, unspecified; Z20.822 Contact with and (suspected) exposure to COVID-19
CPT/HCPCS: 36415; 51702; 71045; 71275; 80048; 80053; 81000; 83605; 83735; 84484; 85007; 85025; 85027; 85610; 85730; 87040; 87088; 87636; 93005; 94760

== ENCOUNTER 2022-06-24 05:32 | Outpatient (CLI) | payer MEDICARE, MEDICAID ==
[~2022-06-24] VITALS: Ht 182.9 cm; Wt 65.7 kg
[~2022-06-24 05:32] MED LIST changes: +AMOX1TAB12 PO; +APIX5TAB PO; +SERT-412 PO
== END 2022-06-29 15:28 | disposition home or self-care (01) ==
LOC: PREOP 05:32
PROVIDERS: ATTEND Surgery
DX: Z01.818 Encounter for other preprocedural examination (principal)

== ENCOUNTER 2022-07-01 08:02 | Day surgery (SDC) | payer MEDICARE, MEDICAID ==
[2022-07-01] VITALS (11 sets, daily range): BP systolic 101–128; BP diastolic 55–80
[~2022-07-01] VITALS: Ht 182.8 cm; Wt 65.7 kg
[2022-07-01] MEDS ORDERED: ceFAZolin INJECTION 2,000 MG in NS (IVPB) 50 ML IV ONE (08:30)
[2022-07-01] MEDS: LACTATED RINGERS 1,000 ML IV PRN ×2 (08:38→11:26)
[2022-07-01] MEDS ORDERED: BUP/EPI 0.5% 1:200,000 (SENSORCAINE) 30 ML VIAL ONE (08:49)
[2022-07-01] MEDS ORDERED: LIDOCAINE PF 2% 5 ML (XYLOCAINE) VIAL ONE (09:35)
[2022-07-01] MEDS ORDERED: proPOfol 200 MG/20 ML (DIPRIVAN) VIAL IV ONE (09:35)
[2022-07-01] MEDS ORDERED: ROCURONIUM 50 MG/5 ML (ZEMURON) VIAL IV ONE (09:35)
[2022-07-01] MEDS ORDERED: fentaNYL INJ 100 MCG/2 ML AMP ONE (09:35)
[2022-07-01] MEDS ORDERED: ONDANSETRON 4 MG/2 ML (SDV) Z0FRAN ONE (10:53)
[2022-07-01] MEDS ORDERED: BUP/EPI 0.5% 1:200,000 (SENSORCAINE) 30 ML VIAL INJ ONE (11:10)
[2022-07-01] MEDS ORDERED: NEOSTIGMINE (BLOXIVERZ ) 1 MG/1ML 10 ML VIAL ONE (11:25)
[2022-07-01] MEDS ORDERED: GLYCOPYRROLATE 0.2 MG/ML (ROBINUL) 2 ML VIAL ONE (11:26)
[2022-07-01] MEDS ORDERED: SEVOFLURANE (ULTANE) 15 ML INHAL SOLN ONE (11:33)
[2022-07-01] MEDS ORDERED: morphine INJ 10 MG/ML 1ML (SYR OR VIAL) IVP ONE (12:00)
[2022-07-01] MEDS ORDERED: ONDANSETRON 4 MG/2 ML (SDV) Z0FRAN IVP PRN (12:00)
--- NOTE | 2022-07-01 13:06 | Discharge Inst-Simple/Standard ---
Discharge Inst-Standard Discharge Medications New, Converted or Re-Newed RX: Transmitted to Pharmacy Patient Instructions/Follow Up Plan of Care/Instructions/FU: two weeks follow up with michael Activity as Tolerated: No Discharge Diet: Regular Diet Other Inst to Patient Follow up Appt: Make appointment for 2 week. Instructions: No lifting greater than 10 pounds. No strenuous activity. May shower in 24 hours, no tub bath or soaking. Use incentive spirometer at home as directed. No Smoking Skin/Wound Care: You have special glue over your incision that will fall off on it's own. Symptoms to Report: Appetite Changes, Extremity Discoloration, Numbness/Tingling, Swelling Increased, Bleeding Excessive, Eyesight Changes, Pain Increased, Urine Color Change, Constipation(Persistent), Fever over 101 degree F, Pain/Pressure in chest, Urinating Difficulty, Cough Up/Vomit Blood, Heart Beat Irreg/Pounding, Pain/Pressure in jaw, Vaginal Bleeding Increase, Cramps in feet or legs, Lightheadedness, Pain/Pressure in shoulder, Diarrhea(Persistent), Memory Changes Suddenly, Questions/Concerns, Weight gain consecutive days, Dizziness/Fainting, Nausea/Vomiting, Shortness of Breath, Weight gain over 2 pounds If questions or concerns contact your physician Or seek help at emergency department. PATRICIA PERALES DO July 01, 2022 13:06
[2022-07-01] MEDS ORDERED: ACHD5005 PO (13:18)
[2022-07-01] MEDS ORDERED: DOCU-143 PO (13:18)
--- NOTE | 2022-07-01 13:26 | Anesthesia-General Post-Op ---
General Patient Condition Mental Status/LOC: Same as Preop Cardiovascular: Satisfactory Nausea/Vomiting: Absent Respiratory: Satisfactory Pain: Controlled Complications: Absent Post Op Complications Complications None Follow Up Care/Instructions Patient Instructions None needed. Anesthesia/Patient Condition Patient Condition Patient is doing well, no complaints, stable vital signs, no apparent adverse anesthesia problems. No complications reported per nursing. STEWART DOSS DO July 01, 2022 13:26
--- NOTE | 2022-07-01 13:42 | Progress Note-Post Operative ---
Post-Operative Progess Note Surgeon (s)/Alumni Secretary (s) Surgeon PATRICIA PERALES DO Alumni Secretary: Dr. Kraft to assist in retraction dissection and closure. Pre-Operative Diagnosis LEFT INGUINAL HERNIA Post-Operative Diagnosis left direct inguinal hernia Procedure & Operative Findings Date of Procedure 07/01/22 Procedure Performed/Findings PROCEDURE: Open left direct inguinal hernia repair. COMPLICATIONS: None. INDICATIONS: The patient is a 66 , male inguinal hernia. Power of transactional attorney understands risks and benefits of procedure and wished to proceed with procedure. Consent was signed in the chart. DESCRIPTION OF PROCEDURE: The patient was taken to the operating suite, was prepped and draped in sterile fashion. Surgical pause was performed. Local anesthetic was infiltrated and a 15 blade scalpel was used to make a skin incision in the lower quadrant. Cautery was used to dissect down the external oblique, which was then opened down through the external ring. The spermatic cord was then dissected around. Ne drain was placed around it and was retracted out of the way. No indirect hernia present. There was a large direct defect present. Contents were reduced. The transversalis fascia was then sutured to the shelving edge using 0 Vicryl. A ProGrip mesh was then cut to size, which was then secured to Nikunj's ligament and then incorporated around the spermatic cord in the usual fashion and placed under the external oblique. The wound was then irrigated with copious amounts of irrigation. The external oblique was then closed using 3-0 Vicryl in running fashion recreating the external ring. The subcutaneous tissue was then reapproximated with 3-0 Vicryl and the skin was then closed using 4-0 Monocryl in a running subcuticular fashion. The area was then washed and dried and sterile bandages were applied. The abdomen was then washed and dried, Skin Affix was placed over the incisions. The patient tolerated procedure well without any complications and was taken to the recovery room in stable condition Anesthesia Type general Estimated Blood Loss Estimated blood loss (mL): minimal Specimens/Packing Specimens Removed PATRICIA Keyes DO July 01, 2022 13:42
== END 2022-07-01 14:09 | disposition home or self-care (01) ==
LOC: SDC 08:02
PROVIDERS: ATTEND Surgery
DX: K40.90 Unilateral inguinal hernia, without obstruction or gangrene, not specified as recurrent (principal); Z79.01 Long term (current) use of anticoagulants
CPT/HCPCS: 49505; 87081; C1781

== ENCOUNTER 2022-10-23 09:03 | Emergency (ER) | payer MEDICARE, MEDICAID ==
[~2022-10-23] VITALS: Ht 182.9 cm; Wt 54.5 kg
[~2022-10-23 09:03] MED LIST changes: +ACHD5005 PO; +DOCU-143 PO
[2022-10-23] MEDS ORDERED: Tetanus/Diphtheria/Pertussis (Acell) ADULT Vaccine 0.5 ML IM ONE (09:15)
[2022-10-23] MEDS ORDERED: L.E.T. SOLUTION 3 ML SYR TOP ONE (09:15)
[2022-10-23 09:27] LABS: BASOPHILS % (AUTO) 0 % (0-10); EOSINOPHILS # (AUTO) 0.3 10^3/uL (0.0-0.3); EOSINOPHILS % (AUTO) 4 % (0-10); HEMATOCRIT 42 % (40-54); HEMOGLOBIN 13.2 g/dL (13.3-17.7); LYMPHOCYTES # (AUTO) 3.4 10^3/uL (1.0-4.0); LYMPHOCYTES % (AUTO) 44 % (12-44); MEAN CORPUSCULAR HEMOGLOBIN 29 pg (25-34); MEAN CORPUSCULAR HGB CONC 32 g/dL (32-36); MEAN CORPUSCULAR VOLUME 93 fL (80-99); MONOCYTES # (AUTO) 0.9 10^3/uL (0.0-1.0); MONOCYTES % (AUTO) 11 % (0-12); NEUTROPHILS # (AUTO) 2.9 10^3/uL (1.8-7.8); NEUTROPHILS % (AUTO) 36 % (42-75); PLATELET COUNT 234 10^3/uL (130-400); WHITE BLOOD COUNT 7.9 10^3/uL (4.3-11.0)
[2022-10-23 09:37] LABS: ALBUMIN 3.9 GM/DL (3.2-4.5); POTASSIUM 3.8 MMOL/L (3.6-5.0)
[2022-10-23 09:39] LABS: CALCIUM 9.2 MG/DL (8.5-10.1)
[2022-10-23 09:40] LABS: TOTAL PROTEIN 7.4 GM/DL (6.4-8.2)
[2022-10-23 09:42] LABS: BILIRUBIN,TOTAL 0.8 MG/DL (0.1-1.0)
[2022-10-23 09:44] LABS: CREATININE SERUM 0.86 MG/DL (0.60-1.30)
--- NOTE | 2022-10-23 09:50 | Diagnostic Imaging Report ---
Clinical indications: Patient with a fall and laceration to upper left head. Exam: Axial CT scan of the brain without IV contrast with coronal and sagittal reformatted images. Auto Exposure Controls were utilized during the CT exam to meet ALARA standards for radiation dose reduction. Comparison: Head CT without contrast dated 09/29/2017. Findings: There is no evidence of acute cerebral infarct, intracranial hemorrhage, or gross mass effect. Diffuse brain parenchymal volume loss is again seen. Small chronic ischemic changes involving the bilateral cerebellar hemispheres is again seen. There is normal gutierrez-white matter distinction. There is no significant midline shift or herniation. There is no evidence of hydrocephalus. The basal cisterns are unremarkable. There is a small area of extracranial soft tissue swelling and laceration involving the left posterior upper aspect of the head. There is no skull fracture. Otherwise, the skull, extracranial soft tissue, and orbits are unremarkable. There is no significant paranasal sinus disease seen. Temporal bones show no significant abnormality. Impression: 1: There is no CT evidence of acute intracranial process. 2: There is a small area of extracranial soft tissue swelling and laceration involving the left upper posterior aspect of the head. There is no skull fracture. Dictated by: Dictated on workstation # [id number]
--- NOTE | 2022-10-23 09:58 | Diagnostic Imaging Report ---
CLINICAL INDICATION: Patient with witnessed fall. Possible pelvic trauma. EXAM: X-ray of the pelvis AP view and x-ray of the left hip, AP and frog-leg views. COMPARISON: None. FINDINGS: There is no acute fracture or dislocation. There are small degenerative spurs involving the left femoral head/neck junction region. There is large amounts of stool in the region of the rectum and sigmoid colon which may be seen with constipation. Sacral iliac joints and visualized portions of the pelvis show no significant abnormality. There are degenerative spurs involving the lower lumbar spine. IMPRESSION: 1.: There is no acute fracture or dislocation. 2: There is a large amount stool within the rectosigmoid region which may be seen with constipation. Dictated by: Dictated on workstation # [id number]
--- NOTE | 2022-10-23 10:32 | ED Fall/Injury ---
General Chief Complaint: Trauma-Non Activation Stated Complaint: FALL Nursing Triage Note: Unwitness fall. Source: EMS, shelter records Exam Limitations: clinical condition, language barrier History of Present Illness Date Seen by Provider: Oct 23, 2022 Time Seen by Provider: 09:07 Initial Comments Here by EMS with shelter report of unwitnessed fall. Apparently he was found on his left side and has laceration to the left side of the head. Patient does have advanced dementia and is nonverbal. He will occasionally move around but is typically quite stiff. shelter reports that the patient was shaking afterwards. His eyes are open and he is moving around and grabbing for people now. Does have a laceration noted to the left side of the head. Does not seem to have other injury except for skin tear to the left elbow. Patient is unable to provide any meaningful information. History by report and records. Patient is on Eliquis. Occurred: this morning ( unknown time) Severity: moderate Injuries/Pain Location: head, upper extremity Context: unknown Loss of Consciousness: unsure Allergies and Home Medications Allergies Coded Allergies: No Known Drug Allergies (Unverified , 06/29/22) Patient Home Medication List Home Medication List Reviewed: Yes Acetaminophen (Tylenol) 325 Mg Capsule, 650 MG PO Q4H PRN for PAIN-MILD (1-4), (Reported) Entered as Reported by: SEVEN MARTINEZ on 05/06/20 1311 Apixaban (Eliquis) 5 Mg Tablet, 5 MG PO BID, (Reported) Entered as Reported by: SEVEN MARTINEZ on 05/25/22 1614 Bisacodyl (Bisacodyl) 10 Mg Supp.rect, 10 MG RC DAILY PRN for CONSTIPATION-4TH LINE, (Reported) Entered as Reported by: SEVEN MARTINEZ on 05/06/20 1311 Buspirone HCl (Buspirone HCl) 5 Mg Tablet, 10 MG PO TID, (Reported) Entered as Reported by: MARIEL THOMAS on 05/05/20 1613 Docusate Sodium (Colace) 100 Mg Capsule, 100 MG PO BID Prescribed by: PATRICIA PERALES on 07/01/22 1318 Hydrocodone/Acetaminophen (Hydrocodone-Acetamin 5-325 mg) 5 Mg-325 Mg Tablet, 1 EACH PO Q4H PRN for PAIN-MODERATE (5-7) Prescribed by: PATRICIA PERALES on 07/01/22 1318 Loperamide HCl (Anti-Diarrheal) 2 Mg Capsule, 2-4 MG PO UD PRN for DIARRHEA, (Reported) Entered as Reported by: SEVEN MARTINEZ on 05/06/20 1311 Magnesium Hydroxide (Milk of Magnesia) 400 Mg/5 Ml Oral.susp, 30 ML PO DAILY PRN for CONSTIPATION-7TH LINE, (Reported) Entered as Reported by: SEVEN MARTINEZ on 05/06/20 1311 Melatonin (Melatonin) 3 Mg Capsule, 6 MG PO HS, (Reported) Entered as Reported by: MARIEL THOMAS on 05/05/20 1613 Mirtazapine (Mirtazapine) 15 Mg Tablet, 15 MG PO HS, (Reported) Entered as Reported by: MARIEL THOMAS on 05/05/20 161 Ondansetron HCl (Ondansetron HCl) 4 Mg Tablet, 4 MG PO Q8H PRN for NAUSEA/VOMITING-1ST LINE, (Reported) Entered as Reported by: SEVEN MARTINEZ on 05/06/20 1311 Risperidone (Risperidone) 0.5 Mg Tablet, 0.5 MG PO BID, (Reported) Entered as Reported by: MARIEL THOMAS on 05/05/20 161 Sertraline HCl (Sertraline HCl) 25 Mg Tablet, 25 MG PO DAILY, (Reported) Entered as Reported by: SEVEN MARTINEZ on 05/25/22 1614 Review of Systems Review of Systems Constitutional: see HPI unable to complete review of systems due to underlying medical condition Past Nebindw-Tttdqi-Mhpqiy Hx Patient Social History Tobacco Use?: No Use of E-Cig and/or Vaping dev: No Substance use?: No Alcohol Use?: No Immunizations Up To Date Influenza Vaccine Up-to-Date: No; Not Current First/Initial COVID19 Vaccinat: 02/27/21 Second COVID19 Vaccination Polo: 03/20/21 Third COVID19 Vaccination Date: 01/14/22 Seasonal Allergies Seasonal Allergies: No Past Medical History Surgery/Hospitalization HX: Respiratory failure, Dysphagia, Anxiety, Dementia Respiratory: Yes (RESP FAILURE W/HYPOXIA) Pneumonia Cardiac: No Neurological: Yes (DYSPHAGIA) Dementia Genitourinary: No Gastrointestinal: No Musculoskeletal: Yes (UNSTEADINESS ON FEET) Endocrine: No HEENT: No Cancer: No Psychosocial: Yes (MOOD DISORDER) Anxiety, Depression Integumentary: No Family Medical History Reviewed Nursing Family Hx No Pertinent Family Hx Physical Exam Vital Signs Vital Signs - First Documented 10/23/22 10/23/22 09:08 09:29 Temp 33.0 Pulse 80 Resp 18 B/P (MAP) 138/113 (121) Pulse Ox 96 O2 Delivery Room Air Capillary Refill : Less Than 3 Seconds Height, Weight, BMI Height: '" Weight: lbs. oz. kg; 16.00 BMI Method: General Appearance: mild distress, thin HEENT: PERRL/EOMI, other (Pharynx dry) Neck: non-tender, full range of motion, supple Cardiovascular: regular rate, rhythm, no murmur Respiratory: lungs clear, normal breath sounds Gastrointestinal: non tender, soft Extremities: non-tender, other (Extremity stiff but no apparent injury other than skin tear noted to left elbow with bleeding controlled. Pelvis is stable. No pain on movement of hips bilateral. No pain noted on movement upper extremities and patient is moving both upper extremities well.) Neurologic/Psychiatric: other (Eyes open and mumbling and grasping to nurses and equipment.) Skin: warm/dry, other (4 cm laceration to the left scalp with bleeding controlled. Skin tear as above.) GCS appears to be baseline per report Marvin Coma Score Best Eye Response: (4) Open Spontaneously Best Verbal Response: (2) Incomprehsible Sounds Best Motor Response: (5) Localizes to Pain Procedures/Interventions Wound Location: Scalp Other Wound Location Left side Wound Length (cm): 5 Wound's Depth, Shape: superficial, linear Wound Explored: contaminated Irrigated w/ Saline (ccs): 100 Betadine Prep?: Yes Anesthesia: Lidocaine w/ Epi (LE), 0.5% Sensorcaine (Topical) Volume Anesthetic (ccs): 3 Staple Repair: Stapler 35W Number of Sutures: 9 Layer Closure?: 1 Number Deep Layer Sutures: 0 Progress Covered with topical LET after copious cleaning. I did reclean and afterwards with Hibiclens and saline and then rinsed with saline. Closed with uzair. Tolerated procedure well with no complications. Nursing applied antibiotic ointment over wound. Adequate hemostasis and closure obtained. Progress/Results/Core Measures Results/Orders Lab Results Laboratory Tests Test 10/23/22 09:18 Range/Units White Blood Count 7.9 4.3-11.0 10^3/uL Red Blood Count 4.51 4.30-5.52 10^6/uL Hemoglobin 13.2 L 13.3-17.7 g/dL Hematocrit 42 40-54 % Mean Corpuscular Volume 93 80-99 fL Mean Corpuscular Hemoglobin 29 25-34 pg Mean Corpuscular Hemoglobin Concent 32 32-36 g/dL Red Cell Distribution Width 14.2 10.0-14.5 % Platelet Count 234 130-400 10^3/uL Mean Platelet Volume 11.0 9.0-12.2 fL Immature Granulocyte % (Auto) 4 % Neutrophils (%) (Auto) 36 L 42-75 % Lymphocytes (%) (Auto) 44 12-44 % Monocytes (%) (Auto) 11 0-12 % Eosinophils (%) (Auto) 4 0-10 % Basophils (%) (Auto) 0 0-10 % Neutrophils # (Auto) 2.9 1.8-7.8 10^3/uL Lymphocytes # (Auto) 3.4 1.0-4.0 10^3/uL Monocytes # (Auto) 0.9 0.0-1.0 10^3/uL Eosinophils # (Auto) 0.3 0.0-0.3 10^3/uL Basophils # (Auto) 0.0 0.0-0.1 10^3/uL Immature Granulocyte # (Auto) 0.3 H 0.0-0.1 10^3/uL Sodium Level 139 135-145 MMOL/L Potassium Level 3.8 3.6-5.0 MMOL/L Chloride Level 108 H 98-107 MMOL/L Carbon Dioxide Level 18 L 21-32 MMOL/L Anion Gap 13 5-14 MMOL/L Blood Urea Nitrogen 16 7-18 MG/DL Creatinine 0.86 0.60-1.30 MG/DL Estimat Glomerular Filtration Rate 94 BUN/Creatinine Ratio 19 Glucose Level 169 H 70-105 MG/DL Calcium Level 9.2 8.5-10.1 MG/DL Corrected Calcium 9.3 8.5-10.1 MG/DL Total Bilirubin 0.8 0.1-1.0 MG/DL Aspartate Amino Transf (AST/SGOT) 20 5-34 U/L Alanine Aminotransferase (ALT/SGPT) 21 0-55 U/L Alkaline Phosphatase 81 40-136 U/L Total Protein 7.4 6.4-8.2 GM/DL Albumin 3.9 3.2-4.5 GM/DL My Orders Orders - JAYMIE SEAY MD Ct Head Wo (10/23/22 09:15) Cbc With Automated Diff (10/23/22 09:15) Comprehensive Metabolic Panel (10/23/22 09:15) Dipht/Pertuss(Acell)/Tet Adult (Dipht/Pe (10/23/22 09:15) Let Solution (Let Solution) (10/23/22 09:15) Pelvis With Left Hip 2-3 Views (10/23/22 09:20) Medications Given in ED Current Medications Medications Dose Ordered Sig/Manuela Route Start Time Stop Time Status Last Admin Dose Admin Diphtheria/ Tetanus/Acell Pertussis 0.5 ml ONCE ONCE IM 10/23/22 09:15 10/23/22 09:18 DC 10/23/22 09:27 0.5 ML Tetracaine/ Epinephrine/ Lidocaine 3 ml ONCE ONCE TOP 10/23/22 09:15 10/23/22 09:18 DC 10/23/22 09:25 3 ML Vital Signs/I&O 10/23/22 10/23/22 09:08 09:29 Temp 33.0 33.0 Pulse 80 80 Resp 18 18 B/P (MAP) 138/113 (121) 138/113 (121) Pulse Ox 96 O2 Delivery Room Air Room Air Blood Pressure Mean: 121 Progress Progress Note : Progress Note Seen and evaluated. We will get CT of the head due to being on blood thinners. We will wean and closed wound to forehead. X-ray hip and pelvis ordered. I will get basic labs due to his inability to express concerns. Monitor patient. Differential diagnosis includes intracranial hemorrhage, pelvic fracture, hip fracture, electrolyte abnormality 1030: CBC is grossly normal. CMP is grossly normal with slight elevated blood sugar and normal creatinine. CT of the head reviewed by me and shows no obvious intracranial hemorrhage on my interpretation. X-ray of the pelvis and left hip shows no obvious fracture on my interpretation. Radiology report agrees. See below. No indication for admission or further work-up. We will closed wound to the left scalp and then discharged home. See procedure note. Discharged home with return precautions. shelter report given by nursing. Diagnostic Imaging Diagonstic Imaging: CT Plain Films/CT/US/NM/MRI: head Comments [facility] [place], [place] NAME: ABBY ANTONIO [facility] REC#: [id number] PT STATUS: REG ER : 1955 PHYSICIAN: JAYMIE SEAY MD ADMIT DATE: 10/23/22/ER Draft Date of Exam:10/23/22 CT HEAD WO Clinical indications: Patient with a fall and laceration to upper left head. Exam: Axial CT scan of the brain without IV contrast with coronal and sagittal reformatted images. Auto Exposure Controls were utilized during the CT exam to meet ALARA standards for radiation dose reduction. Comparison: Head CT without contrast dated 09/29/2017. Findings: There is no evidence of acute cerebral infarct, intracranial hemorrhage, or gross mass effect. Diffuse brain parenchymal volume loss is again seen. Small chronic ischemic changes involving the bilateral cerebellar hemispheres is again seen. There is normal gutierrez-white matter distinction. There is no significant midline shift or herniation. There is no evidence of hydrocephalus. The basal cisterns are unremarkable. There is a small area of extracranial soft tissue swelling and laceration involving the left posterior upper aspect of the head. There is no skull fracture. Otherwise, the skull, extracranial soft tissue, and orbits are unremarkable. There is no significant paranasal sinus disease seen. Temporal bones show no significant abnormality. Impression: 1: There is no CT evidence of acute intracranial process. 2: There is a small area of extracranial soft tissue swelling and laceration involving the left upper posterior aspect of the head. There is no skull fracture. Dictated on workstation # [id number] Dict: 10/23/2245 Trans: 10/23/22 0950 [facility] [id number] Interpreted by: MENDEL ALVAREZ MD Electronically signed by: Diagonstic Imaging: Xray Plain Films/CT/US/NM/MRI: pelvis, hip Comments [facility] [place], [place] NAME: ABBY ANTONIO [facility] REC#: [id number] PT STATUS: REG ER : 1955 PHYSICIAN: JAYMIE SEAY MD ADMIT DATE: 10/23/22/ER Draft Date of Exam:10/23/22 PELVIS WITH LEFT HIP 2-3 VIEWS CLINICAL INDICATION: Patient with witnessed fall. Possible pelvic trauma. EXAM: X-ray of the pelvis AP view and x-ray of the left hip, AP and frog-leg views. COMPARISON: None. FINDINGS: There is no acute fracture or dislocation. There are small degenerative spurs involving the left femoral head/neck junction region. There is large amounts of stool in the region of the rectum and sigmoid colon which may be seen with constipation. Sacral iliac joints and visualized portions of the pelvis show no significant abnormality. There are degenerative spurs involving the lower lumbar spine. IMPRESSION: 1.: There is no acute fracture or dislocation. 2: There is a large amount stool within the rectosigmoid region which may be seen with constipation. Dictated on workstation # [id number] Dict: 10/23/2255 Trans: 10/23/22 0958 [facility] [id number] Interpreted by: MENDEL ALVAREZ MD Electronically signed by: Departure Impression Primary Impression: Scalp laceration Qualified Codes: S01.01XA - Laceration without foreign body of scalp, initial encounter Additional Impressions: Head injury Qualified Codes: S09.90XA - Unspecified injury of head, initial encounter Fall Qualified Codes: W19.XXXA - Unspecified fall, initial encounter Skin tear of left elbow without complication Qualified Codes: S51.012A - Laceration without foreign body of left elbow, initial encounter Disposition: 01 HOME, SELF-CARE Condition: Stable Departure-Patient Inst. Decision time for Depature: 10:53 Referrals: DYLAN HAJI DO (PCP/Family) Primary Care Physician Patient Instructions: Laceration Repair With Uzair ED, Skin Abrasions (DC), Head injury in adults Add. Discharge Instructions: All discharge instructions reviewed with patient and/or family. Voiced understanding. CT of the head did not show any intracranial hemorrhage. X-ray of the hip and pelvis did not show any fracture. Scalp laceration closed with uzair and those can be removed in 7 days. You may apply antibiotic ointment over wound daily and clean as needed. Skin tear to left elbow can be treated with local wound care protocol. Return for worse pain, weakness or other concerns as needed. JAYMIE SEAY MD Oct 23, 2022 10:32
[2022-10-23 11:16] VITALS: BP 133/76
== END 2022-10-23 11:16 | disposition home or self-care (01) ==
LOC: EDUNIT# 09:03 → ER 09:05
DX: S09.90XA Unspecified injury of head, initial encounter (principal); S01.01XA Laceration without foreign body of scalp, initial encounter; S51.012A Laceration without foreign body of left elbow, initial encounter; Z79.01 Long term (current) use of anticoagulants; Z23 Encounter for immunization; W19.XXXA Unspecified fall, initial encounter
CPT/HCPCS: 36415; 70450; 80053; 85025; 90715

== ENCOUNTER 2022-10-24 09:05 | Emergency (ER) | payer MEDICARE, MEDICAID ==
--- NOTE | 2022-10-24 09:43 | ED General ---
General Chief Complaint: Fever-Adult/Adol Stated Complaint: UNRESPONSIVE Nursing Triage Note: PT BROUGHT IN BY [facility] FROM [facility] WITH COMPLAINT OF FEVER, NOT ACTING NORMAL. STATES PT WILL NOT RESPOND, HAS BEEN RUNNING A 101 FEVER. PT WAS SEEN IN ER YESTERDAY FOR FALL AND HAD MIGUEL. GIVEN TYLENOL SUPPOSITORY AT LONG TERM. History of Present Illness Date Seen by Provider: Oct 24, 2022 Time Seen by Provider: 09:30 Initial Comments Abby is a 67-year-old male with a history of severe dementia who presents to the emergency room from a local [facility] with a chief complaint of altered mental status and fever. Patient was seen here in the emergency department yesterday after a fall, suffered a scalp laceration that required stapling. He is chronically anticoagulated on Eliquis. He is at baseline nonverbal. Staff reports here in the emergency room who took care of him yesterday that he was much more active and trying to get out of bed. He is quite still this morning, not even really responsive to painful stimuli. His eyes are open, pupils are equal at about 2 mm. It was reported he had 101 fever but received rectal Tylenol prior to transport. He has very dry oral mucosa, his mouth is open. He is not moving any extremities. I am concerned that he has had delayed hemorrhage due to the fall and head injury yesterday. We will seek repeat CT scan to evaluate this. Otherwise septic work-up has been initiated. No one here from the [facility] to provide further history. Patient is unable to provide any HPI or review of systems due to his dementia and what ever other process is currently ongoing. Timing/Duration: Other (Unsure) Severity: Severe Allergies and Home Medications Allergies Coded Allergies: No Known Drug Allergies (Unverified , 06/29/22) Patient Home Medication List Home Medication List Reviewed: Yes Acetaminophen (Tylenol) 325 Mg Capsule, 650 MG PO Q4H PRN for PAIN-MILD (1-4), (Reported) Entered as Reported by: SEVEN MARTINEZ on 05/06/20 1311 Apixaban (Eliquis) 5 Mg Tablet, 5 MG PO BID, (Reported) Entered as Reported by: SEVEN MARTINEZ on 05/25/22 1614 Bisacodyl (Bisacodyl) 10 Mg Supp.rect, 10 MG RC DAILY PRN for CONSTIPATION-4TH LINE, (Reported) Entered as Reported by: SEVEN MARTINEZ on 05/06/20 131 Buspirone HCl (Buspirone HCl) 5 Mg Tablet, 10 MG PO TID, (Reported) Entered as Reported by: MARIEL THOMAS on 05/05/20 161 Docusate Sodium (Colace) 100 Mg Capsule, 100 MG PO BID Prescribed by: PATRICIA PERALES on 07/01/22 1318 Hydrocodone/Acetaminophen (Hydrocodone-Acetamin 5-325 mg) 5 Mg-325 Mg Tablet, 1 EACH PO Q4H PRN for PAIN-MODERATE (5-7) Prescribed by: PATRICIA PERALES on 07/01/22 1318 Loperamide HCl (Anti-Diarrheal) 2 Mg Capsule, 2-4 MG PO UD PRN for DIARRHEA, (Reported) Entered as Reported by: SEVEN MARTINEZ on 05/06/20 131 Magnesium Hydroxide (Milk of Magnesia) 400 Mg/5 Ml Oral.susp, 30 ML PO DAILY PRN for CONSTIPATION-7TH LINE, (Reported) Entered as Reported by: SEVEN MARTINEZ on 05/06/20 131 Melatonin (Melatonin) 3 Mg Capsule, 6 MG PO HS, (Reported) Entered as Reported by: MARIEL THOMAS on 05/05/201612 Mirtazapine (Mirtazapine) 15 Mg Tablet, 15 MG PO HS, (Reported) Entered as Reported by: MARIEL THOMAS on 05/05/20 161 Ondansetron HCl (Ondansetron HCl) 4 Mg Tablet, 4 MG PO Q8H PRN for NAUSEA/VOMITING-1ST LINE, (Reported) Entered as Reported by: SEVEN MARTINEZ on 05/06/20 131 Risperidone (Risperidone) 0.5 Mg Tablet, 0.5 MG PO BID, (Reported) Entered as Reported by: MARIEL THOMAS on 05/05/20 161 Sertraline HCl (Sertraline HCl) 25 Mg Tablet, 25 MG PO DAILY, (Reported) Entered as Reported by: SEVEN MARTINEZ on 05/25/22 1614 Review of Systems Review of Systems Constitutional: see HPI Unable to obtain HPI review of systems due to dementia Past Fcbqejl-Oixlst-Edesot Hx Patient Social History Tobacco Use?: No Substance use?: No Alcohol Use?: No Pt feels they are or have been: No Immunizations Up To Date First/Initial COVID19 Vaccinat: 02/27/21 Second COVID19 Vaccination Polo: 03/20/21 Third COVID19 Vaccination Date: 01/14/22 Seasonal Allergies Seasonal Allergies: No Past Medical History Surgery/Hospitalization HX: Respiratory failure, Dysphagia, Anxiety, Dementia Respiratory: Yes (RESP FAILURE W/HYPOXIA) Pneumonia Cardiac: No Neurological: Yes (DYSPHAGIA) Dementia Genitourinary: No Gastrointestinal: No Musculoskeletal: Yes (UNSTEADINESS ON FEET) Endocrine: No HEENT: No Cancer: No Psychosocial: Yes (MOOD DISORDER) Anxiety, Depression Integumentary: No Family Medical History No Pertinent Family Hx Physical Exam Vital Signs Vital Signs - First Documented 10/24/22 09:08 Temp 36.9 Pulse 57 Resp 12 B/P (MAP) 112/66 (81) Pulse Ox 96 O2 Delivery Room Air Capillary Refill : Less Than 3 Seconds Height, Weight, BMI Height: '" Weight: lbs. oz. kg; 16.00 BMI Method: General Appearance: Chronically ill, Cachetic, Thin Eyes: Bilateral Eye Other (Pupils are 2 mm bilaterally, patient does appear to focus. He does not actually track but does seem to be looking at me. All amount of bloody discharge noted to the lateral aspect of the left eye. No s ubconjunctival hemorrhages appreciated. No periorbital ecchymosis or lacerations are appreciated) HEENT: Other (Patient has laceration to left parieto-occipital scalp. [place] in place.; Very dry mucous membranes left TM appears to have possibly some hemotympanum. Right ear canal is completely occluded by cerumen. He has no porter sign, raccoon eyes) Neck: Normal Inspection Respiratory: Lungs Clear, Normal Breath Sounds, No Accessory Muscle Use, No Respiratory Distress Cardiovascular: Regular Rate, Rhythm Gastrointestinal: Other (Patient has apparent nontender abdomen;) Genital/Rectal: Normal Genital Exam Back: Normal Inspection Extremity: Normal Inspection, No Pedal Edema Neurologic/Psychiatric: Other (poorly responsive but will focus on this examiner) Skin: Normal Color, Warm/Dry, Other (no skin wounds to the sacrum. superficial non-infected left elbow abrasion) Focused Exam Lactate Level 10/24/22 09:13: Lactic Acid Level 1.21 Lactic Acid Level Laboratory Tests Test 10/24/22 09:13 Lactic Acid Level 1.21 MMOL/L (0.50-2.00) Progress/Results/Core Measures Suspected Sepsis SIRS Temperature: Pulse: 57 Respiratory Rate: 12 Laboratory Tests 10/24/22 09:13: White Blood Count 19.9H Blood Pressure 112 /66 Mean: 81 10/24/22 09:13: Lactic Acid Level 1.21 Laboratory Tests 10/24/22 09:13: Creatinine 0.92, INR Comment 1.0, Platelet Count 257, Total Bilirubin 0.7 Results/Orders Lab Results Laboratory Tests Test 10/24/22 09:06 10/24/22 09:13 10/24/22 09:20 10/24/22 10:53 Range/Units Lab Scanned Report Referred Lab Report [id number] White Blood Count 19.9 H 4.3-11.0 10^3/uL Red Blood Count 4.49 4.30-5.52 10^6/uL Hemoglobin 13.2 L 13.3-17.7 g/dL Hematocrit 41 40-54 % Mean Corpuscular Volume 92 80-99 fL Mean Corpuscular Hemoglobin 29 25-34 pg Mean Corpuscular Hemoglobin Concent 32 32-36 g/dL Red Cell Distribution Width 14.5 10.0-14.5 % Platelet Count 257 130-400 10^3/uL Mean Platelet Volume 11.8 9.0-12.2 fL Immature Granulocyte % (Auto) 1 % Neutrophils (%) (Auto) 84 H 42-75 % Lymphocytes (%) (Auto) 6 L 12-44 % Monocytes (%) (Auto) 9 0-12 % Eosinophils (%) (Auto) 0 0-10 % Basophils (%) (Auto) 0 0-10 % Neutrophils # (Auto) 16.6 H 1.8-7.8 10^3/uL Lymphocytes # (Auto) 1.3 1.0-4.0 10^3/uL Monocytes # (Auto) 1.8 H 0.0-1.0 10^3/uL Eosinophils # (Auto) 0.0 0.0-0.3 10^3/uL Basophils # (Auto) 0.0 0.0-0.1 10^3/uL Immature Granulocyte # (Auto) 0.1 0.0-0.1 10^3/uL Neutrophils % (Manual) 78 % Lymphocytes % (Manual) 13 % Monocytes % (Manual) 6 % Eosinophils % (Manual) 0 % Basophils % (Manual) 0 % Band Neutrophils 3 % Elliptocytes SLIGHT Prothrombin Time 13.5 12.2-14.7 SEC INR Comment 1.0 0.8-1.4 Activated Partial Thromboplast Time 26 24-35 SEC Sodium Level 138 135-145 MMOL/L Potassium Level 4.1 3.6-5.0 MMOL/L Chloride Level 107 98-107 MMOL/L Carbon Dioxide Level 21 21-32 MMOL/L Anion Gap 10 5-14 MMOL/L Blood Urea Nitrogen 21 H 7-18 MG/DL Creatinine 0.92 0.60-1.30 MG/DL Estimat Glomerular Filtration Rate 91 BUN/Creatinine Ratio 23 Glucose Level 111 H 70-105 MG/DL Lactic Acid Level 1.21 0.50-2.00 MMOL/L Calcium Level 9.3 8.5-10.1 MG/DL Corrected Calcium 9.4 8.5-10.1 MG/DL Total Bilirubin 0.7 0.1-1.0 MG/DL Aspartate Amino Transf (AST/SGOT) 20 5-34 U/L Alanine Aminotransferase (ALT/SGPT) 17 0-55 U/L Alkaline Phosphatase 75 40-136 U/L Total Protein 7.3 6.4-8.2 GM/DL Albumin 3.9 3.2-4.5 GM/DL Urine Color YELLOW Urine Clarity CLEAR Urine pH 5.5 5-9 Urine Specific [place] >=1.030 1.016-1.022 Urine Protein NEGATIVE NEGATIVE Urine Glucose (UA) NEGATIVE NEGATIVE Urine Ketones NEGATIVE NEGATIVE Urine Nitrite NEGATIVE NEGATIVE Urine Bilirubin NEGATIVE NEGATIVE Urine Urobilinogen 0.2 < = 1.0 MG/DL Urine Leukocyte Esterase NEGATIVE NEGATIVE Urine RBC (Auto) NEGATIVE NEGATIVE Urine RBC NONE /HPF Urine WBC NONE /HPF Urine Crystals NONE /LPF Urine Bacteria NEGATIVE /HPF Urine Casts NONE /LPF Urine Mucus NEGATIVE /LPF Urine Culture Indicated NO Influenza Type A (RT-PCR) Not Detected Not Detecte Influenza Type B (RT-PCR) Not Detected Not Detecte SARS-CoV-2 RNA (RT-PCR) Not Detected Not Detecte Micro Results Microbiology 10/24/22 Blood Culture - Preliminary, Resulted 10/24/22 Urine Culture - Final, Complete NO GROWTH 10/24/22 Blood Culture - Preliminary, Resulted Gram Positive Cocci My Orders Orders - SILVIANO FREEMAN MD Cbc With Automated Diff (10/24/22 09:41) Comprehensive Metabolic Panel (10/24/22:41) Blood Culture (10/24/22 09:41) Sputum Culture (10/24/22:41) Urinalysis (10/24/22:41) Urine Culture (10/24/22:41) Protime With Inr (10/24/22:41) Partial Thromboplastin Time (10/24/22 09:41) Chest 1 View, Ap/Pa Only (10/24/22 09:41) Ed Iv/Invasive Line Start (10/24/22:41) Ed Iv/Invasive Line Start (10/24/22:41) Vital Signs Adult Sepsis Patie Q15M (10/24/22 09:41) O2 (10/24/22 09:41) Remove Rings In Anticipation O (10/24/22:41) Lactic Acid Analyzer (10/24/22:41) Ct Head Wo (10/24/22 09:41) Manual Differential (10/24/22 09:13) Covid 19 Inhouse Test (10/24/22 10:34) Influenza A And B By Pcr (10/24/22 10:34) Ns Iv 1000 Ml (Ns Iv 1000 Ml) (10/24/22 10:34) Vital Signs/I&O 10/24/22 10/24/22 09:08 12:34 Temp 36.9 Pulse 57 56 Resp 12 12 B/P (MAP) 112/66 (81) 120/64 Pulse Ox 96 97 O2 Delivery Room Air Room Air Capillary Refill : Less Than 3 Seconds Blood Pressure Mean: 81 Progress Note : Time: 12:00 Progress Note Patient seen and evaluated by me. Evaluation today includes physical exam and "sepsis workup" with CT head. Pertinent physical exam findings include thin, cachectic appearing older gentleman with reported fever (afebrile at presentation) and otherwise stable VS. Poor overall responsiveness. Mouth open, dry oral mucosa. Pupils small 2-3mm. possible hemotympanum left TM - right occluded by cerumen. grimaces to painful stimuli. Heart is regular, lungs clear without resp distress. Abd no apparent tenderness elicited on physical exam. He is quite spastic in his extremities. No large skin infections noted, he has a stapled laceration to the left posterior parietal scalp.. Non verbal - severe dementia. Ddx based on H&P - SDH, aspiration pneumonia with sepsis, UTI with sepsis Labs independently reviewed and interpreted by me.His CBC shows a WBC of 19.9 with 84% segs; normal H/H and platelets. Chem normal; coags normal. Lactic 1.21; UA concentrated without signs of infection. COvid and flu negative; CXR unremarkable and CT head shows no evidence of SDH or other delayed hemorrhage. Patient has stable VS without any concerning lab or imaging findings other than his increased WBCs. I am not sure of the etiology of his leukocytosis, it may somply be demargination after his trauma/fall yesterday. Blood cultures are pending. I do not have sepsis high on my differential and we have certainly ruled out brain hemorrhage. Patient will be d/c back to [facility], with return precautions delineated to staff in his paperwork. Diagnostic Imaging Diagonstic Imaging: Xray Plain Films/CT/US/NM/MRI: chest Comments [facility] [place], [place] NAME: ABBY ANTONIO Diane [facility] REC#: [id number] PT STATUS: REG ER : 1955 PHYSICIAN: SILVIANO FREEMAN MD ADMIT DATE: 10/24/22/ER Draft Date of Exam:10/24/22 CHEST 1 VIEW, AP/PA ONLY INDICATION: Fever with dyspnea and altered mental status. COMPARISON: 05/25/2022. DISCUSSION: Single portable upright view of the chest was obtained. The lungs are hyperinflated. Mildly elevated right hemidiaphragm is stable. Normal heart size. No consolidation, pleural fluid, or pneumothorax. No osseous abnormality. IMPRESSION: 1. Negative chest. Dictated on workstation # [id number] Dict: 10/24/22 1008 Trans: 10/24/22 1011 JOE [id number] Interpreted by: OLIVE CRAIN MD Electronically signed by: Diagonstic Imaging: CT Comments [facility] [place], [place] NAME: ABBY ANTONIO [facility] REC#: [id number] PT STATUS: REG ER : 1955 PHYSICIAN: SILVIANO FREEMAN MD ADMIT DATE: 10/24/22/ER Signed Date of Exam:10/24/22 CT HEAD WO PROCEDURE: CT head without contrast. TECHNIQUE: Multiple contiguous axial images were obtained through the brain without the use of intravenous contrast. Auto Exposure Controls were utilized during the CT exam to meet ALARA standards for radiation dose reduction. DATE: October 24, 2022. COMPARISON: CT head without contrast October 23, 2022. INDICATION: 67-year-old male, altered mental status. Fever. FINDINGS: There is proportional prominence of the ventricles and additional CSF spaces consistent with moderate to severe cerebral volume loss. There is no mass effect or midline shift. There is no acute intracranial hemorrhage. There is no abnormal extra-axial fluid collection. The frontal sinuses are hypoplastic. There are skin miguel near the left frontoparietal scalp. IMPRESSION: 1. No identified acute intracranial abnormality. 2. Moderate to severe cerebral volume loss. Dictated by: Dictated on workstation # [id number] Dict: 10/24/22 1007 Trans: 10/24/22 1021 [facility] [id number] Interpreted by: FELA SANDERS MD Electronically signed by: FELA SANDERS MD 10/24/22 1021 Departure Impression Primary Impression: Altered mental state Qualified Codes: R41.82 - Altered mental status, unspecified Additional Impressions: History of dementia Leukocytosis Qualified Codes: D72.829 - Elevated white blood cell count, unspecified Disposition: 01 HOME, SELF-CARE Condition: Stable Departure-Patient Inst. Decision time for Depature: 12:01 Referrals: DYLAN HAJI DO (PCP/Family) Primary Care Physician Patient Instructions: Altered Mental Status (DC) Add. Discharge Instructions: Resume [facility] medications as prescribed. Monitor skin wounds for signs or symptoms of infection, swelling, redness, drainage. Follow-up with primary care physician. Return to the emergency department for any new, concerning or emergent complaints Copy Copies To 1: DYLAN HAJI KATHRYN M MD Oct 24, 2022 09:43
[2022-10-24 09:50] LABS: BASOPHILS % (AUTO) 0 % (0-10); EOSINOPHILS % (AUTO) 0 % (0-10); HEMATOCRIT 41 % (40-54); HEMOGLOBIN 13.2 g/dL (13.3-17.7); LYMPHOCYTES # (AUTO) 1.3 10^3/uL (1.0-4.0); LYMPHOCYTES % (AUTO) 6 % (12-44); MEAN CORPUSCULAR HEMOGLOBIN 29 pg (25-34); MEAN CORPUSCULAR HGB CONC 32 g/dL (32-36); MEAN CORPUSCULAR VOLUME 92 fL (80-99); MEAN PLATELET VOLUME 11.8 fL (9.0-12.2); MONOCYTES # (AUTO) 1.8 10^3/uL (0.0-1.0); MONOCYTES % (AUTO) 9 % (0-12); NEUTROPHILS # (AUTO) 16.6 10^3/uL (1.8-7.8); NEUTROPHILS % (AUTO) 84 % (42-75); PLATELET COUNT 257 10^3/uL (130-400); WHITE BLOOD COUNT 19.9 10^3/uL (4.3-11.0)
[2022-10-24 09:55] LABS: PROTHROMBIN TIME PATIENT 13.5 SEC (12.2-14.7)
[2022-10-24 10:05] LABS: NEUTROPHILS % (MANUAL) 78 %
[2022-10-24 10:06] LABS: CLARITY,URINE CLEAR; COLOR,URINE YELLOW
[2022-10-24 10:06] LABS: ALBUMIN 3.9 GM/DL (3.2-4.5); BAND NEUTROPHILS 3 %; BASOPHILS % (MANUAL) 0 %; BILIRUBIN,TOTAL 0.7 MG/DL (0.1-1.0); CALCIUM 9.3 MG/DL (8.5-10.1); CREATININE SERUM 0.92 MG/DL (0.60-1.30); ELLIPT/OVALOCYTES SLIGHT; EOSINOPHILS % (MANUAL) 0 %; LYMPHOCYTES % (MANUAL) 13 %; MONOCYTES % (MANUAL) 6 %; POTASSIUM 4.1 MMOL/L (3.6-5.0); TOTAL PROTEIN 7.3 GM/DL (6.4-8.2)
[2022-10-24 10:07] LABS: BACTERIA,URINE NEGATIVE /HPF; BILIRUBIN,URINE NEGATIVE (NEGATIVE); GLUCOSE, URINE (UA) NEGATIVE (NEGATIVE); KETONES,URINE NEGATIVE (NEGATIVE); LEUKOCYTE ESTERASE ,URINE NEGATIVE (NEGATIVE); NITRITE,URINE NEGATIVE (NEGATIVE); PH,URINE 5.5 (5-9); PROTEIN,URINE NEGATIVE (NEGATIVE)
--- NOTE | 2022-10-24 10:11 | Diagnostic Imaging Report ---
INDICATION: Fever with dyspnea and altered mental status. COMPARISON: 05/25/2022. DISCUSSION: Single portable upright view of the chest was obtained. The lungs are hyperinflated. Mildly elevated right hemidiaphragm is stable. Normal heart size. No consolidation, pleural fluid, or pneumothorax. No osseous abnormality. IMPRESSION: 1. Negative chest. Dictated by: Dictated on workstation # [id number]
--- NOTE | 2022-10-24 10:19 | Diagnostic Imaging Report ---
PROCEDURE: CT head without contrast. TECHNIQUE: Multiple contiguous axial images were obtained through the brain without the use of intravenous contrast. Auto Exposure Controls were utilized during the CT exam to meet ALARA standards for radiation dose reduction. DATE: October 24, 2022. COMPARISON: CT head without contrast October 23, 2022. INDICATION: 67-year-old male, altered mental status. Fever. FINDINGS: There is proportional prominence of the ventricles and additional CSF spaces consistent with moderate to severe cerebral volume loss. There is no mass effect or midline shift. There is no acute intracranial hemorrhage. There is no abnormal extra-axial fluid collection. The frontal sinuses are hypoplastic. There are skin miguel near the left frontoparietal scalp. IMPRESSION: 1. No identified acute intracranial abnormality. 2. Moderate to severe cerebral volume loss. Dictated by: Dictated on workstation # [id number]
[2022-10-24] MEDS ORDERED: NS IV 1000 ML 1,000 ML IV STA (10:34)
[2022-10-24 12:34] VITALS: BP 120/64
== END 2022-10-24 12:34 | disposition home or self-care (01) ==
LOC: EDUNIT# 09:05 → ER 09:06
DX: R41.82 Altered mental status, unspecified (principal); D72.829 Elevated white blood cell count, unspecified; F03.90 Unspecified dementia, unspecified severity, without behavioral disturbance, psychotic disturbance, mood disturbance, and anxiety; Z79.01 Long term (current) use of anticoagulants; Z20.822 Contact with and (suspected) exposure to COVID-19
CPT/HCPCS: 36415; 51702; 70450; 71045; 80053; 81000; 83605; 85007; 85027; 85610; 85730; 87040; 87088; 87636